=== PATIENT | female | born 1990 | race Caucasian/White ===

== ENCOUNTER 2017-11-30 23:39 | Inpatient (IN) | payer OTHER ==
[~2017-11-30] VITALS: Ht 167.6 cm; Wt 120.7 kg
[2017-12-01 00:11] LABS: BILIRUBIN,URINE NEGATIVE (NEG); CLARITY,URINE CLEAR; COLOR,URINE YELLOW; NITRITE,URINE NEGATIVE (NEG); PH,URINE 7.5; PROTEIN,URINE NEGATIVE (NEG-TRACE)
[2017-12-01 00:19] LABS: BACTERIA,URINE FEW /HPF (0-FEW); RBC,URINE OCC /HPF (0-2); WBC,URINE 20-40 /HPF (0-4)
[2017-12-01 00:20] LABS: SQUAMOUS EPITHELIAL CELL,UR MOD /LPF; TRICHOMONAS,URINE PRESENT
[2017-12-01 00:21] LABS: AMPHETAMINE/METHAMPHETAMINE NEG (NEG); BARBITURATES NEG (NEG); BENZODIAZEPINES NEG (NEG); CANNABINOIDS POS (NEG); COCAINE NEG (NEG); METHADONE NEG (NEG); OPIATES NEG (NEG); PHENCYCLIDINE NEG (NEG)
[2017-12-01] MEDS ORDERED: IV NORMAL SALINE 1000ML BAG 1,000 ML IV ONE (00:30)
--- NOTE | 2017-12-01 00:43 | PHYS DOC ---
Past Medical History Past Medical History: No Pertinent History Past Surgical History: No Surgical History Additional Information: 1/2 PPD Alcohol Use: None Drug Use: Marijuana, Methamphetamine Social History Narrative: SMOKED MARIJUANA 2-3 DAYS AGO Adult General Chief Complaint Chief Complaint: ABDOMINAL PAIN HPI HPI Patient is a 27 year old female who presents with generalized abdominal pain. Patient admits to recent meth and marijuana use and states she's been having generalized abdominal pain for the past days. Patient denies any vomiting or diarrhea but is here for further evaluation and management. Patient states she did have a tubal ligation. Review of Systems Review of Systems Constitutional: Denies fever or chills [] Eyes: Denies change in visual acuity, redness, or eye pain [] HENT: Denies nasal congestion or sore throat [] Respiratory: Denies cough or shortness of breath [] Cardiovascular: No additional information not addressed in HPI [] GI: Denies abdominal pain, nausea, vomiting, bloody stools or diarrhea [] : Denies dysuria or hematuria [] Musculoskeletal: Denies back pain or joint pain [] Integument: Denies rash or skin lesions [] Neurologic: Denies headache, focal weakness or sensory changes [] Endocrine: Denies polyuria or polydipsia [] All other systems were reviewed and found to be within normal limits, except as documented in this note. Current Medications Current Medications Current Medications Medications (Trade) Dose Ordered Sig/Issa Start Time Stop Time Status Last Admin Dose Admin Info (CONTRAST GIVEN -- Rx MONITORING) 1 each PRN DAILY PRN 12/01/17 02:30 12/03/17 02:29 Iohexol (Omnipaque 300 Mg/ml) 75 ml 1X ONCE 12/01/17 03:00 12/01/17 03:01 DC 12/01/17 02:30 75 ML Ketorolac Tromethamine (Toradol 30mg Vial) 30 mg 1X ONCE 12/01/17 02:00 12/01/17 02:01 DC 12/01/17 01:49 30 MG Sodium Chloride 1,000 ml @ 1,000 mls/hr 1X ONCE 12/01/17 00:30 12/01/17 01:29 DC 12/01/17 01:31 1,000 MLS/HR Allergies Allergies Allergies Coded Allergies Type Severity Reaction Last Updated Verified No Known Drug Allergies 07/18/13 No Physical Exam Physical Exam Constitutional: Well developed, well nourished, no acute distress, non-toxic appearance. [] HENT: Normocephalic, atraumatic, bilateral external ears normal, oropharynx moist, no oral exudates, nose normal. [] Eyes: PERRLA, EOMI, conjunctiva normal, no discharge. [] Neck: Normal range of motion, no tenderness, supple, no stridor. [] Cardiovascular:Heart rate regular rhythm, no murmur [] Lungs & Thorax: Bilateral breath sounds clear to auscultation [] Abdomen: Bowel sounds normal, soft, mild, generalized tenderness, no masses, no pulsatile masses. [] Skin: Warm, dry, no erythema, no rash. [] Back: No tenderness, no CVA tenderness. [] Extremities: No tenderness, no cyanosis, no clubbing, ROM intact, no edema. [] Neurologic: Alert and oriented X 3, normal motor function, normal sensory function, no focal deficits noted. [] Psychologic: Affect normal, judgement normal, mood normal. [] Current Patient Data Vital Signs Vital Signs Date Time Temp Pulse Resp B/P (MAP) Pulse Ox O2 Delivery O2 Flow Rate FiO2 11/30/17 23:51 98.6 80 16 133/61 (85) 99 Room Air 98.6 Lab Values Laboratory Tests Test 11/30/17 23:40 11/30/17 23:59 12/01/17 01:10 Urine Collection Type Unknown Urine Color Yellow Urine Clarity Clear Urine pH 7.5 Urine Specific [place] 1.015 Urine Protein Negative mg/dL (NEG-TRACE) Urine Glucose (UA) Negative mg/dL (NEG) Urine Ketones (Stick) Negative mg/dL (NEG) Urine Blood Negative (NEG) Urine Nitrite Negative (NEG) Urine Bilirubin Negative (NEG) Urine Urobilinogen Dipstick 1.0 mg/dL (0.2 mg/dL) Urine Leukocyte Esterase Small (NEG) Urine RBC Occ /HPF (0-2) Urine WBC 20-40 /HPF (0-4) Urine Squamous Epithelial Cells Mod /LPF Urine Bacteria Few /HPF (0-FEW) Urine Mucus Slight /LPF Urine Trichomonas Present Urine Opiates Screen Neg (NEG) Urine Methadone Screen Neg (NEG) Urine Barbiturates Neg (NEG) Urine Phencyclidine Screen Neg (NEG) Urine Amphetamine/Methamphetamine Neg (NEG) Urine Benzodiazepines Screen Neg (NEG) Urine Cocaine Screen Neg (NEG) Urine Cannabinoids Screen Pos (NEG) Urine Ethyl Alcohol Neg (NEG) POC Urine HCG, Qualitative Hcg negative (Negative) White Blood Count 17.9 x10^3/uL (4.0-11.0) H Red Blood Count 4.59 x10^6/uL (3.50-5.40) Hemoglobin 14.8 g/dL (12.0-15.5) Hematocrit 41.9 % (36.0-47.0) Mean Corpuscular Volume 91 fL (79-100) Mean Corpuscular Hemoglobin 32 pg (25-35) Mean Corpuscular Hemoglobin Concent 35 g/dL (31-37) Red Cell Distribution Width 12.9 % (11.5-14.5) Platelet Count 267 x10^3/uL (140-400) Neutrophils (%) (Auto) 84 % (31-73) H Lymphocytes (%) (Auto) 8 % (24-48) L Monocytes (%) (Auto) 6 % (0-9) Eosinophils (%) (Auto) 1 % (0-3) Basophils (%) (Auto) 1 % (0-3) Neutrophils # (Auto) 15.1 x10^3uL (1.8-7.7) H Lymphocytes # (Auto) 1.5 x10^3/uL (1.0-4.8) Monocytes # (Auto) 1.1 x10^3/uL (0.0-1.1) Eosinophils # (Auto) 0.2 x10^3/uL (0.0-0.7) Basophils # (Auto) 0.1 x10^3/uL (0.0-0.2) Segmented Neutrophils % 83 % (35-66) H Band Neutrophils % 6 % (0-9) Lymphocytes % 7 % (24-48) L Monocytes % 4 % (0-10) Platelet Estimate Adequate (ADEQUATE) Sodium Level 134 mmol/L (136-145) L Potassium Level 3.9 mmol/L (3.5-5.1) Chloride Level 98 mmol/L (98-107) Carbon Dioxide Level 29 mmol/L (21-32) Anion Gap 7 (6-14) Blood Urea Nitrogen 6 mg/dL (7-20) L Creatinine 0.7 mg/dL (0.6-1.0) Estimated GFR (Cockcroft-Gault) 98.9 BUN/Creatinine Ratio 9 (6-20) Glucose Level 100 mg/dL (70-99) H Calcium Level 8.9 mg/dL (8.5-10.1) Total Bilirubin 0.6 mg/dL (0.2-1.0) Aspartate Amino Transferase (AST) 17 U/L (15-37) Alanine Aminotransferase (ALT) 13 U/L (14-59) L Alkaline Phosphatase 129 U/L (46-116) H Total Protein 7.5 g/dL (6.4-8.2) Albumin 3.6 g/dL (3.4-5.0) Albumin/Globulin Ratio 0.9 (1.0-1.7) L Lipase 97 U/L (73-393) Ethyl Alcohol Level < 10 mg/dL (0-10) Laboratory Tests 12/01/17 01:10 Laboratory Tests 12/01/17 01:10 EKG EKG [] Radiology/Procedures Radiology/Procedures [facility] [address] [place] [address] IMAGING REPORT Signed PATIENT: WILLIAM RAMIREZ ACCOUNT: [id number] : 1990 LOCATION: ER AGE: 27 SEX: F EXAM STATUS: REG ER ORD. PHYSICIAN: SANJAY NEAL MD REASON: ABDOMEN PAIN X 3 DAYS PROCEDURE: CT ABD PELV W/ IV CONTRST ONLY INDICATION: ABDOMEN PAIN X 3 DAYS
75ML OMNI 300 COMPARISON: None. TECHNIQUE: Axial CT images were obtained through the abdomen and pelvis with intravenous contrast. One or more of the following individualized dose reduction techniques were utilized for this examination: 1. Automated exposure control; 2. Adjustment of the mA and/or kV according to patient size; 3. Use of iterative reconstruction technique. FINDINGS: Chest Base: Partially imaged without gross abnormality. Vessels: No abdominal aortic aneurysm. Liver/Biliary: The gallbladder is distended with suspected stones within as well as mild adjacent edema Pancreas: No definite adjacent fluid collection. Spleen: Normal. Kidneys/Adrenal: No hydronephrosis. Bladder: No definite adjacent inflammation. GI: The appendix does not appear grossly dilated. Prominent subcutaneous vessels in the groin bilaterally. There is a possible cystic lesion of the right adnexa measuring up to approximately 35 mm IMPRESSION: 1. Gallbladder is distended with suspected gallstones within as well as mild adjacent edema. Would correlate with symptoms in the region since early cholecystitis could have this appearance in the correct clinical context. If further information is desired follow-up ultrasound or nuclear hepatic biliary scan could BE obtained. 2. Possible cystic lesion right adnexa. 3. Questionable mild low-attenuation at pancreatic head. Cannot exclude superimposed edema to this area given proximity to gallbladder. Electronically signed by: Mingo Washington MD (12/01/2017 3:29 AM) [facility] [] Course & Med Decision Making Course & Med Decision Making Pertinent Labs and Imaging studies reviewed. (See chart for details) [] Dragon Disclaimer Dragon Disclaimer This electronic medical record was generated, in whole or in part, using a voice recognition dictation system. Departure Departure Referrals: NO PCP (PCP) SANJAY NEAL MD Dec 01, 2017 00:43
[2017-12-01 01:29] LABS: BASO # 0.1 x10^3/uL (0.0-0.2); BASO % 1 % (0-3); EOS # 0.2 x10^3/uL (0.0-0.7); EOS % 1 % (0-3); HEMATOCRIT 41.9 % (36.0-47.0); HEMOGLOBIN 14.8 g/dL (12.0-15.5); LYMPH # 1.5 x10^3/uL (1.0-4.8); LYMPH % 8 % (24-48); MEAN CORPUSCULAR HEMOGLOBIN 32 pg (25-35); MEAN CORPUSCULAR HGB CONC 35 g/dL (31-37); MEAN CORPUSCULAR VOLUME 91 fL (79-100); MONO # 1.1 x10^3/uL (0.0-1.1); MONO % 6 % (0-9); NEUT # 15.1 x10^3uL (1.8-7.7); NEUT % 84 % (31-73); PLATELET COUNT 267 x10^3/uL (140-400); RED BLOOD COUNT 4.59 x10^6/uL (3.50-5.40); RED CELL DISTRIBUTION WIDTH 12.9 % (11.5-14.5); WHITE BLOOD COUNT 17.9 x10^3/uL (4.0-11.0)
[2017-12-01 01:36] LABS: CALCIUM 8.9 mg/dL (8.5-10.1); CREATININE 0.7 mg/dL (0.6-1.0); GFR 98.9; POTASSIUM 3.9 mmol/L (3.5-5.1)
[2017-12-01 01:42] LABS: ALBUMIN 3.6 g/dL (3.4-5.0); ALBUMIN/GLOBULIN RATIO 0.9 (1.0-1.7); TOTAL BILIRUBIN 0.6 mg/dL (0.2-1.0); TOTAL PROTEIN 7.5 g/dL (6.4-8.2)
[2017-12-01] MEDS ORDERED: KETOROLAC 30 MG/ML VIAL. IV ONE (02:00)
[2017-12-01] MEDS ORDERED: CONTRAST GIVEN. MC PRN (02:30)
[2017-12-01] MEDS ORDERED: IOHEXOL 300 MG/ML 100ML VIAL. IV ONE (03:00)
[2017-12-01 03:23] LABS: % BANDS 6 % (0-9); % LYMPHS 7 % (24-48); % MONOS 4 % (0-10); % SEGS 83 % (35-66); PLT ESTIMATE ADEQUATE (ADEQUATE)
--- NOTE | 2017-12-01 03:32 | RAD ---
INDICATION: ABDOMEN PAIN X 3 DAYS
75ML OMNI 300 COMPARISON: None. TECHNIQUE: Axial CT images were obtained through the abdomen and pelvis with intravenous contrast. One or more of the following individualized dose reduction techniques were utilized for this examination: 1. Automated exposure control; 2. Adjustment of the mA and/or kV according to patient size; 3. Use of iterative reconstruction technique. FINDINGS: Chest Base: Partially imaged without gross abnormality. Vessels: No abdominal aortic aneurysm. Liver/Biliary: The gallbladder is distended with suspected stones within as well as mild adjacent edema Pancreas: No definite adjacent fluid collection. Spleen: Normal. Kidneys/Adrenal: No hydronephrosis. Bladder: No definite adjacent inflammation. GI: The appendix does not appear grossly dilated. Prominent subcutaneous vessels in the groin bilaterally. There is a possible cystic lesion of the right adnexa measuring up to approximately 35 mm IMPRESSION: 1. Gallbladder is distended with suspected gallstones within as well as mild adjacent edema. Would correlate with symptoms in the region since early cholecystitis could have this appearance in the correct clinical context. If further information is desired follow-up ultrasound or nuclear hepatic biliary scan could BE obtained. 2. Possible cystic lesion right adnexa. 3. Questionable mild low-attenuation at pancreatic head. Cannot exclude superimposed edema to this area given proximity to gallbladder. Electronically signed by: Mingo Washington MD (12/01/2017 3:29 AM) [facility]
[2017-12-01] MEDS ORDERED: PIPERACILLIN/TAZOBACTAM 3.375 GM in IV NORMAL SALINE 50ML 50 ML IV ONE (05:30)
[2017-12-01] MEDS ORDERED: ONDANSETRON PF 4 MG/2 ML VIAL. IV ONE (06:00)
[2017-12-01] MEDS ORDERED: fentaNYL PF VIAL 100 MCG/2 ML VIAL IV ONE (06:00)
[2017-12-01 07:45] VITALS: BP 120/59
[2017-12-01] MEDS ORDERED: ONDANSETRON PF 4 MG/2 ML VIAL. IV PRN ×2 (08:15→10:30)
[2017-12-01] MEDS ORDERED: MORPHINE SULFATE 4 MG/ML VIAL. IV PRN (08:15)
[2017-12-01] MEDS: IV NORMAL SALINE 1000ML BAG 1,000 ML IV SCH ×2 (09:22→18:28)
[2017-12-01] MEDS ORDERED: fentaNYL PF VIAL 100 MCG/2 ML VIAL IV PRN (10:30)
[2017-12-01 11:00] VITALS: BP 115/77
--- NOTE | 2017-12-01 11:24 | PDOC2 ---
FRED GREENE HAND [employer]APPER 12/01/17 1124: CONSULT Date of Consult Date of Consult DATE: 12/01/17 TIME: 11:20 Reason for Consult Reason for Consult: cholecystitis Referring Physician Referring Physician: ER Identification/Chief Complaint Chief Complaint abdominal pain Source Source: Chart review, Patient History of Present Illness Reason for Visit: 3 day history of upper abdominal pain. Denies nausea or emesis. No constipation or diarrhea. No similar pain in past Past Medical History Past Medical History no pertinent medical hx Past Surgical History Past Surgical History: Tubal Ligation Family History Family History: Other (noncontributory to current illness ) Social History <1 pack per day ALCOHOL: none Drugs: Crystal meth Lives: Alone Current Problem List Problem List Problems Medical Problems: (1) Acute cholecystitis Status: Acute Current Medications Current Medications Current Medications Sodium Chloride 1,000 ml @ 1,000 mls/hr 1X ONCE IV Last administered on at 01:31; Start 12/01/17 at 00:30; Stop 12/01/17 at 01:29; Status DC Ketorolac Tromethamine (Toradol 30mg Vial) 30 mg 1X ONCE IV Last administered on 12/01/17at 01:49; Start 12/01/17 at 02:00; Stop 12/01/17 at 02:01; Status DC Iohexol (Omnipaque 300 Mg/ml) 75 ml 1X ONCE IV Last administered on 12/01/17at 02:30; Start 12/01/17 at 03:00; Stop 12/01/17 at 03:01; Status DC Info (CONTRAST GIVEN -- Rx MONITORING) 1 each PRN DAILY PRN MC SEE COMMENTS; Start 12/01/17 at 02:30; Stop 12/03/17 at 02:29 Piperacillin Sod/ Tazobactam Sod 3.375 gm/Sodium Chloride 50 ml @ 100 mls/hr 1X ONCE IV Last administered on 12/01/17at 05:10; Start 12/01/17 at 05:30; Stop 12/01/17 at 05:59; Status DC Fentanyl Citrate (Fentanyl 2ml Vial) 50 mcg 1X ONCE IV Last administered on at 05:47; Start 12/01/17 at 06:00; Stop 12/01/17 at 06:01; Status DC Ondansetron HCl (Zofran) 4 mg 1X ONCE IV Last administered on 12/01/17at 05:47 ; Start 12/01/17 at 06:00; Stop 12/01/17 at 06:01; Status DC Ondansetron HCl (Zofran) 4 mg PRN Q6HRS PRN IV NAUSEA/VOMITING; Start 12/01/17 at 08:15 Morphine Sulfate (Morphine Sulfate) 4 mg PRN Q2HR PRN IV PAIN Last administered on 12/01/17at 09:22; Start 12/01/17 at 08:15 Sodium Chloride 1,000 ml @ 125 mls/hr Q8H IV Last administered on 12/01/17at 09 :22; Start 12/01/17 at 08:15 Fentanyl Citrate (Fentanyl 2ml Vial) 50 mcg PRN Q4HRS PRN IV PAIN Last administered on 12/01/17at 11:13; Start 12/01/17 at 10:30; Stop 12/02/17 at 10:29 Ondansetron HCl (Zofran) 4 mg PRN Q6HRS PRN IV NAUSEA/VOMITING; Start 12/01/17 at 10:30; Stop 12/01/17 at 10:30; Status DC Piperacillin Sod/ Tazobactam Sod 3.375 gm/Sodium Chloride 50 ml @ 100 mls/hr Q6HRS IV ; Start 12/01/17 at 18:00 Allergies Allergies: Coded Allergies: No Known Drug Allergies (Unverified , 07/18/13) ROS General: No: Chills, Other (fevers) PSYCHOLOGICAL ROS: No: Anxiety, Depression Eyes: No Blurry vision, No Double vision HEENT: No: Heacaches, Sore Throat Hematological and Lymphatic: No: Bleeding Problems, Blood Clots Respiratory: No: Cough, Shortness of breath Cardiovascular: No Chest Pain, No Palpitations Gastrointestinal: Yes Other (see hpi) Genitourinary: No Dysuria, No Hematuria Musculoskeletal: No Joint Pain, No Muscle Pain Neurological: No Confusion, No Impaired Coord/balance Skin: No Pruritus, No Rash Physical Exam General: Alert, Cooperative, Other (in acute pain) HEENT: Other (poor dentition ) Lungs: Clear to auscultation, Normal air movement Heart: Regular rate, Normal S1, Normal S2, No murmurs Abdomen: Soft, Other (generalized TTP, greater across upper abdomen ) Extremities: No clubbing, No cyanosis Skin: No rashes, No breakdown Neuro: Normal gait, Normal speech Psych/Mental Status: Mental status NL, Mood NL MUSCULOSKELETAL: No deformity, No swelling Vitals VITALS Vital Signs Date Time Temp Pulse Resp B/P (MAP) Pulse Ox O2 Delivery O2 Flow Rate FiO2 12/01/17 11:13 Room Air 12/01/17 07:45 98.9 69 18 120/59 (79) 93 98.9 Labs Labs Laboratory Tests Test 11/30/17 23:40 11/30/17 23:59 12/01/17 01:10 Urine Collection Type Unknown Urine Color Yellow Urine Clarity Clear Urine pH 7.5 Urine Specific [place] 1.015 Urine Protein Negative mg/dL (NEG-TRACE) Urine Glucose (UA) Negative mg/dL (NEG) Urine Ketones (Stick) Negative mg/dL (NEG) Urine Blood Negative (NEG) Urine Nitrite Negative (NEG) Urine Bilirubin Negative (NEG) Urine Urobilinogen Dipstick 1.0 mg/dL (0.2 mg/dL) Urine Leukocyte Esterase Small (NEG) Urine RBC Occ /HPF (0-2) Urine WBC 20-40 /HPF (0-4) Urine Squamous Epithelial Cells Mod /LPF Urine Bacteria Few /HPF (0-FEW) Urine Mucus Slight /LPF Urine Trichomonas Present Urine Opiates Screen Neg (NEG) Urine Methadone Screen Neg (NEG) Urine Barbiturates Neg (NEG) Urine Phencyclidine Screen Neg (NEG) Urine Amphetamine/Methamphetamine Neg (NEG) Urine Benzodiazepines Screen Neg (NEG) Urine Cocaine Screen Neg (NEG) Urine Cannabinoids Screen Pos (NEG) Urine Ethyl Alcohol Neg (NEG) Bedside Urine HCG, Qualitative Hcg negative (Negative) White Blood Count 17.9 x10^3/uL (4.0-11.0) Red Blood Count 4.59 x10^6/uL (3.50-5.40) Hemoglobin 14.8 g/dL (12.0-15.5) Hematocrit 41.9 % (36.0-47.0) Mean Corpuscular Volume 91 fL (79-100) Mean Corpuscular Hemoglobin 32 pg (25-35) Mean Corpuscular Hemoglobin Concent 35 g/dL (31-37) Red Cell Distribution Width 12.9 % (11.5-14.5) Platelet Count 267 x10^3/uL (140-400) Neutrophils (%) (Auto) 84 % (31-73) Lymphocytes (%) (Auto) 8 % (24-48) Monocytes (%) (Auto) 6 % (0-9) Eosinophils (%) (Auto) 1 % (0-3) Basophils (%) (Auto) 1 % (0-3) Neutrophils # (Auto) 15.1 x10^3uL (1.8-7.7) Lymphocytes # (Auto) 1.5 x10^3/uL (1.0-4.8) Monocytes # (Auto) 1.1 x10^3/uL (0.0-1.1) Eosinophils # (Auto) 0.2 x10^3/uL (0.0-0.7) Basophils # (Auto) 0.1 x10^3/uL (0.0-0.2) Segmented Neutrophils % 83 % (35-66) Band Neutrophils % 6 % (0-9) Lymphocytes % 7 % (24-48) Monocytes % 4 % (0-10) Platelet Estimate Adequate (ADEQUATE) Sodium Level 134 mmol/L (136-145) Potassium Level 3.9 mmol/L (3.5-5.1) Chloride Level 98 mmol/L (98-107) Carbon Dioxide Level 29 mmol/L (21-32) Anion Gap 7 (6-14) Blood Urea Nitrogen 6 mg/dL (7-20) Creatinine 0.7 mg/dL (0.6-1.0) Estimated GFR (Cockcroft-Gault) 98.9 BUN/Creatinine Ratio 9 (6-20) Glucose Level 100 mg/dL (70-99) Calcium Level 8.9 mg/dL (8.5-10.1) Total Bilirubin 0.6 mg/dL (0.2-1.0) Aspartate Amino Transf (AST/SGOT) 17 U/L (15-37) Alanine Aminotransferase (ALT/SGPT) 13 U/L (14-59) Alkaline Phosphatase 129 U/L (46-116) Total Protein 7.5 g/dL (6.4-8.2) Albumin 3.6 g/dL (3.4-5.0) Albumin/Globulin Ratio 0.9 (1.0-1.7) Lipase 97 U/L (73-393) Ethyl Alcohol Level < 10 mg/dL (0-10) Laboratory Tests Test 11/30/17 23:40 11/30/17 23:59 12/01/17 01:10 Urine Collection Type Unknown Urine Color Yellow Urine Clarity Clear Urine pH 7.5 Urine Specific [place] 1.015 Urine Protein Negative mg/dL (NEG-TRACE) Urine Glucose (UA) Negative mg/dL (NEG) Urine Ketones (Stick) Negative mg/dL (NEG) Urine Blood Negative (NEG) Urine Nitrite Negative (NEG) Urine Bilirubin Negative (NEG) Urine Urobilinogen Dipstick 1.0 mg/dL (0.2 mg/dL) Urine Leukocyte Esterase Small (NEG) Urine RBC Occ /HPF (0-2) Urine WBC 20-40 /HPF (0-4) Urine Squamous Epithelial Cells Mod /LPF Urine Bacteria Few /HPF (0-FEW) Urine Mucus Slight /LPF Urine Trichomonas Present Urine Opiates Screen Neg (NEG) Urine Methadone Screen Neg (NEG) Urine Barbiturates Neg (NEG) Urine Phencyclidine Screen Neg (NEG) Urine Amphetamine/Methamphetamine Neg (NEG) Urine Benzodiazepines Screen Neg (NEG) Urine Cocaine Screen Neg (NEG) Urine Cannabinoids Screen Pos (NEG) Urine Ethyl Alcohol Neg (NEG) Bedside Urine HCG, Qualitative Hcg negative (Negative) White Blood Count 17.9 x10^3/uL (4.0-11.0) Red Blood Count 4.59 x10^6/uL (3.50-5.40) Hemoglobin 14.8 g/dL (12.0-15.5) Hematocrit 41.9 % (36.0-47.0) Mean Corpuscular Volume 91 fL (79-100) Mean Corpuscular Hemoglobin 32 pg (25-35) Mean Corpuscular Hemoglobin Concent 35 g/dL (31-37) Red Cell Distribution Width 12.9 % (11.5-14.5) Platelet Count 267 x10^3/uL (140-400) Neutrophils (%) (Auto) 84 % (31-73) Lymphocytes (%) (Auto) 8 % (24-48) Monocytes (%) (Auto) 6 % (0-9) Eosinophils (%) (Auto) 1 % (0-3) Basophils (%) (Auto) 1 % (0-3) Neutrophils # (Auto) 15.1 x10^3uL (1.8-7.7) Lymphocytes # (Auto) 1.5 x10^3/uL (1.0-4.8) Monocytes # (Auto) 1.1 x10^3/uL (0.0-1.1) Eosinophils # (Auto) 0.2 x10^3/uL (0.0-0.7) Basophils # (Auto) 0.1 x10^3/uL (0.0-0.2) Segmented Neutrophils % 83 % (35-66) Band Neutrophils % 6 % (0-9) Lymphocytes % 7 % (24-48) Monocytes % 4 % (0-10) Platelet Estimate Adequate (ADEQUATE) Sodium Level 134 mmol/L (136-145) Potassium Level 3.9 mmol/L (3.5-5.1) Chloride Level 98 mmol/L (98-107) Carbon Dioxide Level 29 mmol/L (21-32) Anion Gap 7 (6-14) Blood Urea Nitrogen 6 mg/dL (7-20) Creatinine 0.7 mg/dL (0.6-1.0) Estimated GFR (Cockcroft-Gault) 98.9 BUN/Creatinine Ratio 9 (6-20) Glucose Level 100 mg/dL (70-99) Calcium Level 8.9 mg/dL (8.5-10.1) Total Bilirubin 0.6 mg/dL (0.2-1.0) Aspartate Amino Transf (AST/SGOT) 17 U/L (15-37) Alanine Aminotransferase (ALT/SGPT) 13 U/L (14-59) Alkaline Phosphatase 129 U/L (46-116) Total Protein 7.5 g/dL (6.4-8.2) Albumin 3.6 g/dL (3.4-5.0) Albumin/Globulin Ratio 0.9 (1.0-1.7) Lipase 97 U/L (73-393) Ethyl Alcohol Level < 10 mg/dL (0-10) Assessment/Plan Assessment/Plan abdominal pain CT --possible cholecystitis, however abnormal appearance of pancreatic head and possible cystic lesion to right adnexa wbc 17, lfts stable will review with JAGRUTI Quinones MD 12/01/17 5031: CONSULT Assessment/Plan Assessment/Plan Pt seen and examined. Agree with Ms. Greene's note Pt with c/o diffuse abd pain, doesn't localize abd soft, obese, mild diffuse TTP will check US to evaluate GB, pancreatic head and adenexa will ask GI to evaluate Thanks for consult! FRED GREENE APRN Dec 01, 2017 11:24 JAGRUTI SHAFFER MD Dec 01, 2017 14:04
--- NOTE | 2017-12-01 11:31 | PDOC1 ---
History and Physical Date of Admission Date of Admission DATE: 12/01/17 TIME: 11:28 Identification/Chief Complaint Chief Complaint abd pain Source Source: Chart review, Patient History of Present Illness History of Present Illness Ms. Mccrary is a 27 year old female admit with acute new, generalized abdominal pain. Pain 9.10 pain has worsened over a few days, noted tobacco and substance abuse no vomiting or diarrhea Patient states she did have a tubal ligation. Past Medical History Cardiovascular: No pertinent hx Pulmonary: No pertinent hx GI: No pertinent hx Heme/Onc: No pertinent hx Hepatobiliary: No pertinent hx Psych: No pertinent hx Past Surgical History Past Surgical History: Tubal Ligation Family History Family History: Other (noncontributory to current illness ) Social History Smoke: <1 pack per day ALCOHOL: none Drugs: Crystal meth Current Problem List Problem List Problems Medical Problems: (1) Acute cholecystitis Status: Acute Current Medications Current Medications Current Medications Sodium Chloride 1,000 ml @ 1,000 mls/hr 1X ONCE IV Last administered on at 01:31; Start 12/01/17 at 00:30; Stop 12/01/17 at 01:29; Status DC Ketorolac Tromethamine (Toradol 30mg Vial) 30 mg 1X ONCE IV Last administered on 12/01/17at 01:49; Start 12/01/17 at 02:00; Stop 12/01/17 at 02:01; Status DC Iohexol (Omnipaque 300 Mg/ml) 75 ml 1X ONCE IV Last administered on 12/01/17at 02:30; Start 12/01/17 at 03:00; Stop 12/01/17 at 03:01; Status DC Info (CONTRAST GIVEN -- Rx MONITORING) 1 each PRN DAILY PRN MC SEE COMMENTS; Start 12/01/17 at 02:30; Stop 12/03/17 at 02:29 Piperacillin Sod/ Tazobactam Sod 3.375 gm/Sodium Chloride 50 ml @ 100 mls/hr 1X ONCE IV Last administered on 12/01/17at 05:10; Start 12/01/17 at 05:30; Stop 12/01/17 at 05:59; Status DC Fentanyl Citrate (Fentanyl 2ml Vial) 50 mcg 1X ONCE IV Last administered on at 05:47; Start 12/01/17 at 06:00; Stop 12/01/17 at 06:01; Status DC Ondansetron HCl (Zofran) 4 mg 1X ONCE IV Last administered on 12/01/17at 05:47 ; Start 12/01/17 at 06:00; Stop 12/01/17 at 06:01; Status DC Ondansetron HCl (Zofran) 4 mg PRN Q6HRS PRN IV NAUSEA/VOMITING; Start 12/01/17 at 08:15 Morphine Sulfate (Morphine Sulfate) 4 mg PRN Q2HR PRN IV PAIN Last administered on 12/01/17at 09:22; Start 12/01/17 at 08:15 Sodium Chloride 1,000 ml @ 125 mls/hr Q8H IV Last administered on 12/01/17at 09 :22; Start 12/01/17 at 08:15 Fentanyl Citrate (Fentanyl 2ml Vial) 50 mcg PRN Q4HRS PRN IV PAIN Last administered on 12/01/17at 11:13; Start 12/01/17 at 10:30; Stop 12/02/17 at 10:29 Ondansetron HCl (Zofran) 4 mg PRN Q6HRS PRN IV NAUSEA/VOMITING; Start 12/01/17 at 10:30; Stop 12/01/17 at 10:30; Status DC Piperacillin Sod/ Tazobactam Sod 3.375 gm/Sodium Chloride 50 ml @ 100 mls/hr Q6HRS IV ; Start 12/01/17 at 18:00 Allergies Allergies: Coded Allergies: No Known Drug Allergies (Unverified , 07/18/13) ROS General: YES: Fatigue, Appetite; No: Chills, Night Sweats, Malaise, Other PSYCHOLOGICAL ROS: No: Anxiety, Behavioral Disorder, Concentration difficultie , Decreased libido, Depression, Disorientation, Hallucinations, Hostility, Irritablity, Memory difficulties, Mood Swings, Obsessive thoughts, Physical abuse, Sexual abuse, Sleep disturbances, Suicidal ideation, Other Eyes: No Blurry vision, No Decreased vision, No Double vision, No Dry eyes, No Excessive tearing, No Eye Pain, No Itchy Eyes, No Loss of vision, No Photophobia , No Scotomata, No Uses contacts, No Uses glasses, No Other HEENT: YES: Heacaches; No: Visual Changes, Hearing change, Nasal congestion, Nasal discharge, Oral lesions, Sinus pain, Sore Throat, Epistaxis, Sneezing, Snoring, Tinnitus, Vertigo, Vocal changes, Other Respiratory: No: Cough, Hemoptysis, Orthopnea, Pleuritic Pain, Shortness of breath, SOB with excertion, Sputum Changes, Stridor, Tachypnea, Wheezing, Other Cardiovascular: No Chest Pain, No Palpitations, No Orthopnea, No Paroxysmal Noc. Dyspnea, No Edema, No Lt Headedness, No Other Gastrointestinal: Yes Nausea, Yes Vomiting, Yes Abdominal Pain Genitourinary: No Dysuria, No Frequency, No Incontinence, No Hematuria, No Retention, No Discharge, No Urgency, No Pain, No Flank Pain, No Other, No , No , No , No , No , No , No Musculoskeletal: No Gait Disturbance, No Joint Pain, No Joint Stiffness, No Joint Swelling, No Muscle Pain, No Muscular Weakness, No Pain In:, No Swelling In:, No Other Neurological: No Behavorial Changes, No Bowel/Bladder ControlChng, No Confusion , No Dizziness, No Gait Disturbance, No Headaches, No Impaired Coord/balance, No Memory Loss, No Numbness/Tingling, No Seizures, No Speech Problems, No Tremors, No Visual Changes, No Weakness, No Other Skin: No Dry Skin, No Eczema, No Hair Changes, No Lumps, No Mole Changes, No Mottling, No Nail Changes, No Pruritus, No Rash, No Skin Lesion Changes, No Other, No Acne Physical Exam General: Alert, Oriented X3, Cooperative, No acute distress HEENT: EOMI, Mucous membr. moist/pink Lungs: Normal air movement Heart: S1S2, no gallops, no murmurs Abdomen: Other (pain , guarding diffusely) Extremities: No cyanosis, No edema, Normal pulses Skin: No rashes, No significant lesion Neuro: Normal speech, Sensation intact, Cranial nerves 3-12 NL Psych/Mental Status: Mental status NL, Mood NL Vitals Vitals Vital Signs Date Time Temp Pulse Resp B/P (MAP) Pulse Ox O2 Delivery O2 Flow Rate FiO2 12/01/17 11:13 Room Air 12/01/17 07:45 98.9 69 18 120/59 (79) 93 98.9 Labs Labs Laboratory Tests Test 11/30/17 23:40 11/30/17 23:59 12/01/17 01:10 Urine Collection Type Unknown Urine Color Yellow Urine Clarity Clear Urine pH 7.5 Urine Specific [place] 1.015 Urine Protein Negative mg/dL (NEG-TRACE) Urine Glucose (UA) Negative mg/dL (NEG) Urine Ketones (Stick) Negative mg/dL (NEG) Urine Blood Negative (NEG) Urine Nitrite Negative (NEG) Urine Bilirubin Negative (NEG) Urine Urobilinogen Dipstick 1.0 mg/dL (0.2 mg/dL) Urine Leukocyte Esterase Small (NEG) Urine RBC Occ /HPF (0-2) Urine WBC 20-40 /HPF (0-4) Urine Squamous Epithelial Cells Mod /LPF Urine Bacteria Few /HPF (0-FEW) Urine Mucus Slight /LPF Urine Trichomonas Present Urine Opiates Screen Neg (NEG) Urine Methadone Screen Neg (NEG) Urine Barbiturates Neg (NEG) Urine Phencyclidine Screen Neg (NEG) Urine Amphetamine/Methamphetamine Neg (NEG) Urine Benzodiazepines Screen Neg (NEG) Urine Cocaine Screen Neg (NEG) Urine Cannabinoids Screen Pos (NEG) Urine Ethyl Alcohol Neg (NEG) Bedside Urine HCG, Qualitative Hcg negative (Negative) White Blood Count 17.9 x10^3/uL (4.0-11.0) Red Blood Count 4.59 x10^6/uL (3.50-5.40) Hemoglobin 14.8 g/dL (12.0-15.5) Hematocrit 41.9 % (36.0-47.0) Mean Corpuscular Volume 91 fL (79-100) Mean Corpuscular Hemoglobin 32 pg (25-35) Mean Corpuscular Hemoglobin Concent 35 g/dL (31-37) Red Cell Distribution Width 12.9 % (11.5-14.5) Platelet Count 267 x10^3/uL (140-400) Neutrophils (%) (Auto) 84 % (31-73) Lymphocytes (%) (Auto) 8 % (24-48) Monocytes (%) (Auto) 6 % (0-9) Eosinophils (%) (Auto) 1 % (0-3) Basophils (%) (Auto) 1 % (0-3) Neutrophils # (Auto) 15.1 x10^3uL (1.8-7.7) Lymphocytes # (Auto) 1.5 x10^3/uL (1.0-4.8) Monocytes # (Auto) 1.1 x10^3/uL (0.0-1.1) Eosinophils # (Auto) 0.2 x10^3/uL (0.0-0.7) Basophils # (Auto) 0.1 x10^3/uL (0.0-0.2) Segmented Neutrophils % 83 % (35-66) Band Neutrophils % 6 % (0-9) Lymphocytes % 7 % (24-48) Monocytes % 4 % (0-10) Platelet Estimate Adequate (ADEQUATE) Sodium Level 134 mmol/L (136-145) Potassium Level 3.9 mmol/L (3.5-5.1) Chloride Level 98 mmol/L (98-107) Carbon Dioxide Level 29 mmol/L (21-32) Anion Gap 7 (6-14) Blood Urea Nitrogen 6 mg/dL (7-20) Creatinine 0.7 mg/dL (0.6-1.0) Estimated GFR (Cockcroft-Gault) 98.9 BUN/Creatinine Ratio 9 (6-20) Glucose Level 100 mg/dL (70-99) Calcium Level 8.9 mg/dL (8.5-10.1) Total Bilirubin 0.6 mg/dL (0.2-1.0) Aspartate Amino Transf (AST/SGOT) 17 U/L (15-37) Alanine Aminotransferase (ALT/SGPT) 13 U/L (14-59) Alkaline Phosphatase 129 U/L (46-116) Total Protein 7.5 g/dL (6.4-8.2) Albumin 3.6 g/dL (3.4-5.0) Albumin/Globulin Ratio 0.9 (1.0-1.7) Lipase 97 U/L (73-393) Ethyl Alcohol Level < 10 mg/dL (0-10) Laboratory Tests Test 11/30/17 23:40 11/30/17 23:59 12/01/17 01:10 Urine Collection Type Unknown Urine Color Yellow Urine Clarity Clear Urine pH 7.5 Urine Specific [place] 1.015 Urine Protein Negative mg/dL (NEG-TRACE) Urine Glucose (UA) Negative mg/dL (NEG) Urine Ketones (Stick) Negative mg/dL (NEG) Urine Blood Negative (NEG) Urine Nitrite Negative (NEG) Urine Bilirubin Negative (NEG) Urine Urobilinogen Dipstick 1.0 mg/dL (0.2 mg/dL) Urine Leukocyte Esterase Small (NEG) Urine RBC Occ /HPF (0-2) Urine WBC 20-40 /HPF (0-4) Urine Squamous Epithelial Cells Mod /LPF Urine Bacteria Few /HPF (0-FEW) Urine Mucus Slight /LPF Urine Trichomonas Present Urine Opiates Screen Neg (NEG) Urine Methadone Screen Neg (NEG) Urine Barbiturates Neg (NEG) Urine Phencyclidine Screen Neg (NEG) Urine Amphetamine/Methamphetamine Neg (NEG) Urine Benzodiazepines Screen Neg (NEG) Urine Cocaine Screen Neg (NEG) Urine Cannabinoids Screen Pos (NEG) Urine Ethyl Alcohol Neg (NEG) Bedside Urine HCG, Qualitative Hcg negative (Negative) White Blood Count 17.9 x10^3/uL (4.0-11.0) Red Blood Count 4.59 x10^6/uL (3.50-5.40) Hemoglobin 14.8 g/dL (12.0-15.5) Hematocrit 41.9 % (36.0-47.0) Mean Corpuscular Volume 91 fL (79-100) Mean Corpuscular Hemoglobin 32 pg (25-35) Mean Corpuscular Hemoglobin Concent 35 g/dL (31-37) Red Cell Distribution Width 12.9 % (11.5-14.5) Platelet Count 267 x10^3/uL (140-400) Neutrophils (%) (Auto) 84 % (31-73) Lymphocytes (%) (Auto) 8 % (24-48) Monocytes (%) (Auto) 6 % (0-9) Eosinophils (%) (Auto) 1 % (0-3) Basophils (%) (Auto) 1 % (0-3) Neutrophils # (Auto) 15.1 x10^3uL (1.8-7.7) Lymphocytes # (Auto) 1.5 x10^3/uL (1.0-4.8) Monocytes # (Auto) 1.1 x10^3/uL (0.0-1.1) Eosinophils # (Auto) 0.2 x10^3/uL (0.0-0.7) Basophils # (Auto) 0.1 x10^3/uL (0.0-0.2) Segmented Neutrophils % 83 % (35-66) Band Neutrophils % 6 % (0-9) Lymphocytes % 7 % (24-48) Monocytes % 4 % (0-10) Platelet Estimate Adequate (ADEQUATE) Sodium Level 134 mmol/L (136-145) Potassium Level 3.9 mmol/L (3.5-5.1) Chloride Level 98 mmol/L (98-107) Carbon Dioxide Level 29 mmol/L (21-32) Anion Gap 7 (6-14) Blood Urea Nitrogen 6 mg/dL (7-20) Creatinine 0.7 mg/dL (0.6-1.0) Estimated GFR (Cockcroft-Gault) 98.9 BUN/Creatinine Ratio 9 (6-20) Glucose Level 100 mg/dL (70-99) Calcium Level 8.9 mg/dL (8.5-10.1) Total Bilirubin 0.6 mg/dL (0.2-1.0) Aspartate Amino Transf (AST/SGOT) 17 U/L (15-37) Alanine Aminotransferase (ALT/SGPT) 13 U/L (14-59) Alkaline Phosphatase 129 U/L (46-116) Total Protein 7.5 g/dL (6.4-8.2) Albumin 3.6 g/dL (3.4-5.0) Albumin/Globulin Ratio 0.9 (1.0-1.7) Lipase 97 U/L (73-393) Ethyl Alcohol Level < 10 mg/dL (0-10) VTE Prophylaxis Ordered VTE Prophylaxis Devices: No VTE Pharmacological Prophylaxi: Yes Assessment/Plan Assessment/Plan Acute abd pain acute joe obesity, BMI 38 GRADY SIEGEL MD Dec 01, 2017 11:31
[2017-12-01] MEDS: fentaNYL PF VIAL 100 MCG/2 ML VIAL IV PRN ×5 (13:11→22:28)
[2017-12-01] MEDS ORDERED: SALIVA STIMULANT AGENT 44ML SPRAY BOTTLE. PO PRN (13:45)
--- NOTE | 2017-12-01 15:26 | PDOC2 ---
GI CONSULT Reason For Consult: Abd pain HPI: HPI: 27 y/o female admitted through ER w/ abd pain, previously d/w Dr. Alejandro. She tells me 3-4 days of upper abd pain, no precipitating events. No pain like this in the past - awoke from sleep a few nights ago. No n/v, no radiation. No diarrhea or constipation though no stool in a couple days. No bleeding. Eating makes no difference in pain - appetite is stable and she's actually hungry. No reflux or dysphagia. No previous EGD or colonoscopy. 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 Diagnosed w/ Hep C in 2009 she thinks, no treatment. Unaware of GB or pancreas history. No NSAIDs. Has 2 daughters (Ages 6 and 7) that do not live with her. WBC 17.9, tox +cannabinoids. On CT: distended GB w/ suspected stone and mild adjacent edema, possible right adnexal cyst, and questionable mild low- attenuation at pancreatic head (superimposed edema w/ proximity to GB possible) . Abd and pelvis US pending. PMH: PMH: substance abuse, Hep C, PCOS, tubal ligation FH: Family History: Other (father -ulcers) Social History: Smoke: <1 pack per day ALCOHOL: none Drugs: Marijuana, Crystal meth (quit 1 week ago) ROS: GEN: Denies fevers, chills, sweats HEENT: Denies blurred vision, sore throat CV: Denies chest pain RESP: Denies shortness of air, cough GI: Per HPI : Denies hematuria, dysuria ENDO: Denies weight changes NEURO: Denies confusion, dizziness MSK: Denies weakness, joint pain/swelling SKIN: Denies jaundice, pruritus Vitals: Vitals: Vital Signs Date Time Temp Pulse Resp B/P (MAP) Pulse Ox O2 Delivery O2 Flow Rate FiO2 12/01/17 13:46 Room Air 12/01/17 11:00 98.6 75 18 115/77 (90) 93 98.6 Labs: Labs: Laboratory Tests Test 11/30/17 23:40 11/30/17 23:59 12/01/17 01:10 Urine Collection Type Unknown Urine Color Yellow Urine Clarity Clear Urine pH 7.5 Urine Specific [place] 1.015 Urine Protein Negative mg/dL (NEG-TRACE) Urine Glucose (UA) Negative mg/dL (NEG) Urine Ketones (Stick) Negative mg/dL (NEG) Urine Blood Negative (NEG) Urine Nitrite Negative (NEG) Urine Bilirubin Negative (NEG) Urine Urobilinogen Dipstick 1.0 mg/dL (0.2 mg/dL) Urine Leukocyte Esterase Small (NEG) Urine RBC Occ /HPF (0-2) Urine WBC 20-40 /HPF (0-4) Urine Squamous Epithelial Cells Mod /LPF Urine Bacteria Few /HPF (0-FEW) Urine Mucus Slight /LPF Urine Trichomonas Present Urine Opiates Screen Neg (NEG) Urine Methadone Screen Neg (NEG) Urine Barbiturates Neg (NEG) Urine Phencyclidine Screen Neg (NEG) Urine Amphetamine/Methamphetamine Neg (NEG) Urine Benzodiazepines Screen Neg (NEG) Urine Cocaine Screen Neg (NEG) Urine Cannabinoids Screen Pos (NEG) Urine Ethyl Alcohol Neg (NEG) Bedside Urine HCG, Qualitative Hcg negative (Negative) White Blood Count 17.9 x10^3/uL (4.0-11.0) Red Blood Count 4.59 x10^6/uL (3.50-5.40) Hemoglobin 14.8 g/dL (12.0-15.5) Hematocrit 41.9 % (36.0-47.0) Mean Corpuscular Volume 91 fL (79-100) Mean Corpuscular Hemoglobin 32 pg (25-35) Mean Corpuscular Hemoglobin Concent 35 g/dL (31-37) Red Cell Distribution Width 12.9 % (11.5-14.5) Platelet Count 267 x10^3/uL (140-400) Neutrophils (%) (Auto) 84 % (31-73) Lymphocytes (%) (Auto) 8 % (24-48) Monocytes (%) (Auto) 6 % (0-9) Eosinophils (%) (Auto) 1 % (0-3) Basophils (%) (Auto) 1 % (0-3) Neutrophils # (Auto) 15.1 x10^3uL (1.8-7.7) Lymphocytes # (Auto) 1.5 x10^3/uL (1.0-4.8) Monocytes # (Auto) 1.1 x10^3/uL (0.0-1.1) Eosinophils # (Auto) 0.2 x10^3/uL (0.0-0.7) Basophils # (Auto) 0.1 x10^3/uL (0.0-0.2) Segmented Neutrophils % 83 % (35-66) Band Neutrophils % 6 % (0-9) Lymphocytes % 7 % (24-48) Monocytes % 4 % (0-10) Platelet Estimate Adequate (ADEQUATE) Sodium Level 134 mmol/L (136-145) Potassium Level 3.9 mmol/L (3.5-5.1) Chloride Level 98 mmol/L (98-107) Carbon Dioxide Level 29 mmol/L (21-32) Anion Gap 7 (6-14) Blood Urea Nitrogen 6 mg/dL (7-20) Creatinine 0.7 mg/dL (0.6-1.0) Estimated GFR (Cockcroft-Gault) 98.9 BUN/Creatinine Ratio 9 (6-20) Glucose Level 100 mg/dL (70-99) Calcium Level 8.9 mg/dL (8.5-10.1) Total Bilirubin 0.6 mg/dL (0.2-1.0) Aspartate Amino Transf (AST/SGOT) 17 U/L (15-37) Alanine Aminotransferase (ALT/SGPT) 13 U/L (14-59) Alkaline Phosphatase 129 U/L (46-116) Total Protein 7.5 g/dL (6.4-8.2) Albumin 3.6 g/dL (3.4-5.0) Albumin/Globulin Ratio 0.9 (1.0-1.7) Lipase 97 U/L (73-393) Ethyl Alcohol Level < 10 mg/dL (0-10) Allergies: Coded Allergies: No Known Drug Allergies (Unverified , 07/18/13) Medications: Current Medications Medications (Trade) Dose Ordered Sig/Issa Route PRN Reason Start Time Stop Time Status Last Admin Dose Admin Sodium Chloride 1,000 ml @ 1,000 mls/hr 1X ONCE IV 12/01/17 00:30 12/01/17 01:29 DC 12/01/17 01:31 Ketorolac Tromethamine (Toradol 30mg Vial) 30 mg 1X ONCE IV 12/01/17 02:00 12/01/17 02:01 DC 12/01/17 01:49 Iohexol (Omnipaque 300 Mg/ml) 75 ml 1X ONCE IV 12/01/17 03:00 12/01/17 03:01 DC 12/01/17 02:30 Piperacillin Sod/ Tazobactam Sod 3.375 gm/Sodium Chloride 50 ml @ 100 mls/hr 1X ONCE IV 12/01/17 05:30 12/01/17 05:59 DC 12/01/17 05:10 Fentanyl Citrate (Fentanyl 2ml Vial) 50 mcg 1X ONCE IV 12/01/17 06:00 12/01/17 06:01 DC 12/01/17 05:47 Ondansetron HCl (Zofran) 4 mg 1X ONCE IV 12/01/17 06:00 12/01/17 06:01 DC 12/01/17 05:47 Morphine Sulfate (Morphine Sulfate) 4 mg PRN Q2HR PRN IV PAIN 12/01/17 08:15 12/01/17 09:22 Sodium Chloride 1,000 ml @ 125 mls/hr Q8H IV 12/01/17 08:15 12/01/17 09:22 Fentanyl Citrate (Fentanyl 2ml Vial) 50 mcg PRN Q4HRS PRN IV PAIN 12/01/17 10:30 12/01/17 12:58 DC 12/01/17 11:13 Fentanyl Citrate (Fentanyl 2ml Vial) 50 mcg PRN Q2HR PRN IV PAIN 12/01/17 13:00 12/01/17 13:11 Imaging: Imaging: CT A/P IMPRESSION: 1. Gallbladder is distended with suspected gallstones within as well as mild adjacent edema. Would correlate with symptoms in the region since early cholecystitis could have this appearance in the correct clinical context. If further information is desired follow-up ultrasound or nuclear hepatic biliary scan could BE obtained. 2. Possible cystic lesion right adnexa. 3. Questionable mild low-attenuation at pancreatic head. Cannot exclude superimposed edema to this area given proximity to gallbladder. PE: GEN: NAD HEENT: Atraumatic, PERRL, poor dentition LUNGS: CTAB HEART: RRR ABD: NABS, soft/obese, RUQ/epigastric tenderness EXTREMITY: No edema SKIN: No rashes, no jaundice NEURO/PSYCH: A & O 3, tearful A/P: A/P: Upper abd pain Leukocytosis Abnormal CT - distended GB, possible gallstones, possible right adnexal cyst, questionable finding at pancreatic head Hep C Substance abuse - quit meth 1 week ago -- Await US re: abnormal GB on CT, also for liver eval. Confirm Hep C. Defer diet to surgery. CORDELIA THEODORE Dec 01, 2017 15:26
[2017-12-01] MEDS: PIPERACILLIN/TAZOBACTAM 3.375 GM in IV NORMAL SALINE 50ML 50 ML IV SCH (18:27)
[2017-12-01 19:00] VITALS: BP 126/70
[2017-12-01 23:00] VITALS: BP 134/70
[2017-12-02] MEDS: IV NORMAL SALINE 1000ML BAG 1,000 ML IV SCH ×3 (00:42→17:32)
[2017-12-02] MEDS: PIPERACILLIN/TAZOBACTAM 3.375 GM in IV NORMAL SALINE 50ML 50 ML IV SCH ×4 (00:42→17:32)
[2017-12-02] MEDS: fentaNYL PF VIAL 100 MCG/2 ML VIAL IV PRN ×8 (00:46→22:52)
[2017-12-02 03:00] VITALS: BP 135/66
[2017-12-02 07:00] VITALS: BP 114/62
--- NOTE | 2017-12-02 08:23 | RAD ---
Right upper quadrant abdominal ultrasound, 12/01/2017: HISTORY: Pain, check pancreas The gallbladder is mildly distended. It contains multiple echogenic foci with posterior acoustic shadowing compatible with gallstones. Its wall appears slightly thickened. The liver is mildly enlarged measuring just over 20 cm in craniocaudad extent at the level the right lobe. No hepatic mass or intrahepatic bile duct dilatation is seen. The common hepatic duct was not clearly visualized. A segment of what appears to be the common bile duct is dilated measuring approximately 14 mm. A small echogenic internal focus raises the possibility of calculus or other debris. Only limited portions of the pancreatic body were visible and are unremarkable. The right kidney shows no abnormality. IMPRESSION: 1. Gallbladder distention with cholelithiasis and mild gallbladder wall thickening raising the possibility of acute cholecystitis. 2. Common bile duct distention with possible choledocholithiasis. 3. Hepatomegaly. Pelvic ultrasound, 12/01/2017: HISTORY: Right adnexal mass Transabdominal and transvaginal scans were obtained. The transabdominal scans are of limited utility due to lack of bladder distention. On the transvaginal scans the uterus measures 8.7 x 4.7 x 5.5 cm. The central uterine echo complex measures 11 mm. No uterine mass is evident. The right ovary measures 3.0 x 2.8 x 2.5 cm. It contains a 2.5 cm septated cyst or cyst cluster. The left ovary measures 3.0 x 2.2 x 2.4 cm. Blood flow is present in both ovaries. There are prominent periuterine vessels bilaterally. A small amount of free fluid is present in the cul-de-sac. IMPRESSION: 1. Small complicated right ovarian cyst or cyst cluster. Sonographic follow-up is suggested. 2. Small amount of free fluid in the pelvis. Electronically signed by: Landen Bradley MD (12/02/2017 8:20 AM) [facility]
--- NOTE | 2017-12-02 10:15 | PDOC ---
SURGICAL PROGRESS NOTE Subjective Patient complaining of abdominal pain no nausea or vomiting also having some right lower quadrant cramping Vital Signs Vital Signs Date Time Temp Pulse Resp B/P (MAP) Pulse Ox O2 Delivery O2 Flow Rate FiO2 12/02/17 08:45 16 98 Room Air 12/02/17 07:00 97.5 70 114/62 (79) 97.5 I&O Intake and Output 12/02/17 07:00 Intake Total 0 ml Balance 0 ml Intake Oral 0 ml # Voids 7 PATIENT HAS A SUMMERS: No General: Alert, Oriented X3, Cooperative, mild distress Abdomen: Normal bowel sounds, Soft, Other (tender to palpation right upper quadrant) Labs Laboratory Tests Test 11/30/17 23:40 11/30/17 23:59 12/01/17 01:10 Urine Collection Type Unknown Urine Color Yellow Urine Clarity Clear Urine pH 7.5 Urine Specific [place] 1.015 Urine Protein Negative mg/dL (NEG-TRACE) Urine Glucose (UA) Negative mg/dL (NEG) Urine Ketones (Stick) Negative mg/dL (NEG) Urine Blood Negative (NEG) Urine Nitrite Negative (NEG) Urine Bilirubin Negative (NEG) Urine Urobilinogen Dipstick 1.0 mg/dL (0.2 mg/dL) Urine Leukocyte Esterase Small (NEG) Urine RBC Occ /HPF (0-2) Urine WBC 20-40 /HPF (0-4) Urine Squamous Epithelial Cells Mod /LPF Urine Bacteria Few /HPF (0-FEW) Urine Mucus Slight /LPF Urine Trichomonas Present Urine Opiates Screen Neg (NEG) Urine Methadone Screen Neg (NEG) Urine Barbiturates Neg (NEG) Urine Phencyclidine Screen Neg (NEG) Urine Amphetamine/Methamphetamine Neg (NEG) Urine Benzodiazepines Screen Neg (NEG) Urine Cocaine Screen Neg (NEG) Urine Cannabinoids Screen Pos (NEG) Urine Ethyl Alcohol Neg (NEG) Bedside Urine HCG, Qualitative Hcg negative (Negative) White Blood Count 17.9 x10^3/uL (4.0-11.0) Red Blood Count 4.59 x10^6/uL (3.50-5.40) Hemoglobin 14.8 g/dL (12.0-15.5) Hematocrit 41.9 % (36.0-47.0) Mean Corpuscular Volume 91 fL (79-100) Mean Corpuscular Hemoglobin 32 pg (25-35) Mean Corpuscular Hemoglobin Concent 35 g/dL (31-37) Red Cell Distribution Width 12.9 % (11.5-14.5) Platelet Count 267 x10^3/uL (140-400) Neutrophils (%) (Auto) 84 % (31-73) Lymphocytes (%) (Auto) 8 % (24-48) Monocytes (%) (Auto) 6 % (0-9) Eosinophils (%) (Auto) 1 % (0-3) Basophils (%) (Auto) 1 % (0-3) Neutrophils # (Auto) 15.1 x10^3uL (1.8-7.7) Lymphocytes # (Auto) 1.5 x10^3/uL (1.0-4.8) Monocytes # (Auto) 1.1 x10^3/uL (0.0-1.1) Eosinophils # (Auto) 0.2 x10^3/uL (0.0-0.7) Basophils # (Auto) 0.1 x10^3/uL (0.0-0.2) Segmented Neutrophils % 83 % (35-66) Band Neutrophils % 6 % (0-9) Lymphocytes % 7 % (24-48) Monocytes % 4 % (0-10) Platelet Estimate Adequate (ADEQUATE) Sodium Level 134 mmol/L (136-145) Potassium Level 3.9 mmol/L (3.5-5.1) Chloride Level 98 mmol/L (98-107) Carbon Dioxide Level 29 mmol/L (21-32) Anion Gap 7 (6-14) Blood Urea Nitrogen 6 mg/dL (7-20) Creatinine 0.7 mg/dL (0.6-1.0) Estimated GFR (Cockcroft-Gault) 98.9 BUN/Creatinine Ratio 9 (6-20) Glucose Level 100 mg/dL (70-99) Calcium Level 8.9 mg/dL (8.5-10.1) Total Bilirubin 0.6 mg/dL (0.2-1.0) Aspartate Amino Transf (AST/SGOT) 17 U/L (15-37) Alanine Aminotransferase (ALT/SGPT) 13 U/L (14-59) Alkaline Phosphatase 129 U/L (46-116) Total Protein 7.5 g/dL (6.4-8.2) Albumin 3.6 g/dL (3.4-5.0) Albumin/Globulin Ratio 0.9 (1.0-1.7) Lipase 97 U/L (73-393) Ethyl Alcohol Level < 10 mg/dL (0-10) Hepatitis C IgG Antibody Reactive (Nonreactive) I have reviewed the following Ultrasound reviewed showing gallstones mildly thickened gallbladder wall Problem List Problems Medical Problems: (1) Acute cholecystitis Status: Acute Assessment/Plan 27-year-old female with right upper quadrant abdominal pain ultrasound showing gallstones and thickened gallbladder wall consistent with cholecystitis plan for laparoscopic cholecystectomy tomorrow 12/03 BONI HOWARD MD Dec 02, 2017 10:15
[2017-12-02 11:00] VITALS: BP 122/80
--- NOTE | 2017-12-02 13:21 | PDOC ---
PROGRESS NOTES Chief Complaint Chief Complaint acute abdominal pain acute joe with thickened gallbladder wall tobacco use d/o obesity, BMI 43 History of Present Illness History of Present Illness gen surg following, plan lap joe tomorrow Vitals Vitals Vital Signs Date Time Temp Pulse Resp B/P (MAP) Pulse Ox O2 Delivery O2 Flow Rate FiO2 12/02/17 11:00 98.2 60 16 122/80 (94) 95 Room Air 98.2 Physical Exam General: Alert, Oriented X3, Cooperative, mild distress Heart: Regular rate, Normal S1, Normal S2, No murmurs Abdomen: Normal bowel sounds, Soft, Other (tender to palpation right upper quadrant) Extremities: No cyanosis, No edema, Normal pulses Skin: No rashes, No significant lesion Assessment and Plan Assessmemt and Plan Problems Medical Problems: (1) Acute cholecystitis Status: Acute Comment Review of Relevant I have reviewed the following items estela (where applicable) has been applied. Labs Laboratory Tests Test 11/30/17 23:40 11/30/17 23:59 12/01/17 01:10 Urine Collection Type Unknown Urine Color Yellow Urine Clarity Clear Urine pH 7.5 Urine Specific [place] 1.015 Urine Protein Negative mg/dL (NEG-TRACE) Urine Glucose (UA) Negative mg/dL (NEG) Urine Ketones (Stick) Negative mg/dL (NEG) Urine Blood Negative (NEG) Urine Nitrite Negative (NEG) Urine Bilirubin Negative (NEG) Urine Urobilinogen Dipstick 1.0 mg/dL (0.2 mg/dL) Urine Leukocyte Esterase Small (NEG) Urine RBC Occ /HPF (0-2) Urine WBC 20-40 /HPF (0-4) Urine Squamous Epithelial Cells Mod /LPF Urine Bacteria Few /HPF (0-FEW) Urine Mucus Slight /LPF Urine Trichomonas Present Urine Opiates Screen Neg (NEG) Urine Methadone Screen Neg (NEG) Urine Barbiturates Neg (NEG) Urine Phencyclidine Screen Neg (NEG) Urine Amphetamine/Methamphetamine Neg (NEG) Urine Benzodiazepines Screen Neg (NEG) Urine Cocaine Screen Neg (NEG) Urine Cannabinoids Screen Pos (NEG) Urine Ethyl Alcohol Neg (NEG) Bedside Urine HCG, Qualitative Hcg negative (Negative) White Blood Count 17.9 x10^3/uL (4.0-11.0) Red Blood Count 4.59 x10^6/uL (3.50-5.40) Hemoglobin 14.8 g/dL (12.0-15.5) Hematocrit 41.9 % (36.0-47.0) Mean Corpuscular Volume 91 fL (79-100) Mean Corpuscular Hemoglobin 32 pg (25-35) Mean Corpuscular Hemoglobin Concent 35 g/dL (31-37) Red Cell Distribution Width 12.9 % (11.5-14.5) Platelet Count 267 x10^3/uL (140-400) Neutrophils (%) (Auto) 84 % (31-73) Lymphocytes (%) (Auto) 8 % (24-48) Monocytes (%) (Auto) 6 % (0-9) Eosinophils (%) (Auto) 1 % (0-3) Basophils (%) (Auto) 1 % (0-3) Neutrophils # (Auto) 15.1 x10^3uL (1.8-7.7) Lymphocytes # (Auto) 1.5 x10^3/uL (1.0-4.8) Monocytes # (Auto) 1.1 x10^3/uL (0.0-1.1) Eosinophils # (Auto) 0.2 x10^3/uL (0.0-0.7) Basophils # (Auto) 0.1 x10^3/uL (0.0-0.2) Segmented Neutrophils % 83 % (35-66) Band Neutrophils % 6 % (0-9) Lymphocytes % 7 % (24-48) Monocytes % 4 % (0-10) Platelet Estimate Adequate (ADEQUATE) Sodium Level 134 mmol/L (136-145) Potassium Level 3.9 mmol/L (3.5-5.1) Chloride Level 98 mmol/L (98-107) Carbon Dioxide Level 29 mmol/L (21-32) Anion Gap 7 (6-14) Blood Urea Nitrogen 6 mg/dL (7-20) Creatinine 0.7 mg/dL (0.6-1.0) Estimated GFR (Cockcroft-Gault) 98.9 BUN/Creatinine Ratio 9 (6-20) Glucose Level 100 mg/dL (70-99) Calcium Level 8.9 mg/dL (8.5-10.1) Total Bilirubin 0.6 mg/dL (0.2-1.0) Aspartate Amino Transf (AST/SGOT) 17 U/L (15-37) Alanine Aminotransferase (ALT/SGPT) 13 U/L (14-59) Alkaline Phosphatase 129 U/L (46-116) Total Protein 7.5 g/dL (6.4-8.2) Albumin 3.6 g/dL (3.4-5.0) Albumin/Globulin Ratio 0.9 (1.0-1.7) Lipase 97 U/L (73-393) Ethyl Alcohol Level < 10 mg/dL (0-10) Hepatitis C IgG Antibody Reactive (Nonreactive) Medications Current Medications Sodium Chloride 1,000 ml @ 1,000 mls/hr 1X ONCE IV Last administered on at 01:31; Start 12/01/17 at 00:30; Stop 12/01/17 at 01:29; Status DC Ketorolac Tromethamine (Toradol 30mg Vial) 30 mg 1X ONCE IV Last administered on 12/01/17at 01:49; Start 12/01/17 at 02:00; Stop 12/01/17 at 02:01; Status DC Iohexol (Omnipaque 300 Mg/ml) 75 ml 1X ONCE IV Last administered on 12/01/17at 02:30; Start 12/01/17 at 03:00; Stop 12/01/17 at 03:01; Status DC Info (CONTRAST GIVEN -- Rx MONITORING) 1 each PRN DAILY PRN MC SEE COMMENTS; Start 12/01/17 at 02:30; Stop 12/03/17 at 02:29 Piperacillin Sod/ Tazobactam Sod 3.375 gm/Sodium Chloride 50 ml @ 100 mls/hr 1X ONCE IV Last administered on 12/01/17at 05:10; Start 12/01/17 at 05:30; Stop 12/01/17 at 05:59; Status DC Fentanyl Citrate (Fentanyl 2ml Vial) 50 mcg 1X ONCE IV Last administered on at 05:47; Start 12/01/17 at 06:00; Stop 12/01/17 at 06:01; Status DC Ondansetron HCl (Zofran) 4 mg 1X ONCE IV Last administered on 12/01/17at 05:47 ; Start 12/01/17 at 06:00; Stop 12/01/17 at 06:01; Status DC Ondansetron HCl (Zofran) 4 mg PRN Q6HRS PRN IV NAUSEA/VOMITING; Start 12/01/17 at 08:15 Morphine Sulfate (Morphine Sulfate) 4 mg PRN Q2HR PRN IV PAIN Last administered on 12/01/17at 09:22; Start 12/01/17 at 08:15 Sodium Chloride 1,000 ml @ 125 mls/hr Q8H IV Last administered on 12/02/17at 08 :11; Start 12/01/17 at 08:15 Fentanyl Citrate (Fentanyl 2ml Vial) 50 mcg PRN Q4HRS PRN IV PAIN Last administered on 12/01/17at 11:13; Start 12/01/17 at 10:30; Stop 12/01/17 at 12:58 ; Status DC Ondansetron HCl (Zofran) 4 mg PRN Q6HRS PRN IV NAUSEA/VOMITING; Start 12/01/17 at 10:30; Stop 12/01/17 at 10:30; Status DC Piperacillin Sod/ Tazobactam Sod 3.375 gm/Sodium Chloride 50 ml @ 100 mls/hr Q6HRS IV Last administered on 12/02/17at 12:38; Start 12/01/17 at 18:00 Fentanyl Citrate (Fentanyl 2ml Vial) 50 mcg PRN Q2HR PRN IV MODERATE PAIN Last administered on 12/01/17at 20:27; Start 12/01/17 at 13:00 Saliva Substitute (Biotene Moisturizing Mouth) 2 spray PRN Q15MIN PRN PO DRY MOUTH; Start 12/01/17 at 13:45 Fentanyl Citrate (Fentanyl 2ml Vial) 75 mcg PRN Q2HR PRN IV SEVERE PAIN Last administered on 12/02/17at 08:12; Start 12/01/17 at 22:00 Cefazolin Sodium/ Dextrose 50 ml @ 100 mls/hr 1X PERIOP ONCE IV ; Start at 10:30; Stop 12/03/17 at 10:59 Lactobacillus Rhamnosus (Culturelle) 1 cap BID PO ; Start 12/02/17 at 21:00 Ondansetron HCl (Zofran) 4 mg PRN Q6HRS PRN IV NAUSEA/VOMITING; Start 12/03/17 at 07:00; Stop 12/04/17 at 06:59 Fentanyl Citrate (Fentanyl 2ml Vial) 25 mcg PRN Q5MIN PRN IV MILD PAIN; Start 12/03/17 at 07:00; Stop 12/04/17 at 06:59 Fentanyl Citrate (Fentanyl 2ml Vial) 50 mcg PRN Q5MIN PRN IV MODERATE TO SEVERE PAIN; Start 12/03/17 at 07:00; Stop 12/04/17 at 06:59 Morphine Sulfate (Morphine Sulfate) 1 mg PRN Q10MIN PRN IV SEVERE PAIN; Start 12/03/17 at 07:00; Stop 12/04/17 at 06:59 Ringer's Solution 1,000 ml @ 30 mls/hr Q24H IV ; Start 12/03/17 at 07:00; Stop 12/03/17 at 18:59 Lidocaine HCl (Xylocaine-Mpf 1% 2ml Vial) 2 ml PRN 1X PRN ID IV START; Start at 07:00; Stop 12/04/17 at 06:59 Hydromorphone HCl (Dilaudid) 0.5 mg PRN Q10MIN PRN IV SEV PAIN, Second choice; Start 12/03/17 at 07:00; Stop 12/04/17 at 06:59 Prochlorperazine Edisylate (Compazine) 5 mg PACU PRN PRN IV NAUSEA, MRX1; Start 12/03/17 at 07:00; Stop 12/04/17 at 06:59 Vitals/I & O Vital Sign - Last 24 Hours 12/01/17 12/01/17 12/01/17 12/01/17 16:00 18:27 19:00 20:00 Temp 97.3 97.3 Pulse 65 Resp 16 18 B/P (MAP) 126/70 (88) Pulse Ox 95 O2 Delivery Room Air Room Air Room Air 12/01/17 12/01/17 12/01/17 12/01/17 20:27 20:57 22:28 23:00 Temp 98.6 98.6 Pulse 69 Resp 18 20 20 18 B/P (MAP) 134/70 (91) Pulse Ox 93 93 93 96 O2 Delivery Room Air Room Air Room Air Room Air 12/02/17 12/02/17 12/02/17 12/02/17 00:46 02:44 03:00 05:10 Temp 98.1 98.1 Pulse 68 Resp 18 20 18 20 B/P (MAP) 135/66 (89) Pulse Ox 96 96 92 92 O2 Delivery Room Air Room Air Room Air Room Air 12/02/17 12/02/17 12/02/17 12/02/17 07:00 08:00 08:12 08:45 Temp 97.5 97.5 Pulse 70 Resp 16 16 16 B/P (MAP) 114/62 (79) Pulse Ox 95 96 98 O2 Delivery Room Air Room Air Room Air Room Air 12/02/17 11:00 Temp 98.2 98.2 Pulse 60 Resp 16 B/P (MAP) 122/80 (94) Pulse Ox 95 O2 Delivery Room Air Intake and Output 12/01/17 12/01/17 12/02/17 15:00 23:00 07:00 Intake Total 0 ml Balance 0 ml GRADY SIEGEL MD Dec 02, 2017 13:21
--- NOTE | 2017-12-02 13:45 | PDOC ---
Objective: Objective: D/w RN earlier - asking for pain meds round the clock, c/o RLQ pain. Vital Signs: Vital Signs Date Time Temp Pulse Resp B/P (MAP) Pulse Ox O2 Delivery O2 Flow Rate FiO2 12/02/17 11:00 98.2 60 16 122/80 (94) 95 Room Air 98.2 Imaging: RUQ US IMPRESSION: 1. Gallbladder distention with cholelithiasis and mild gallbladder wall thickening raising the possibility of acute cholecystitis. 2. Common bile duct distention with possible choledocholithiasis. 3. Hepatomegaly. Pelvis US IMPRESSION: 1. Small complicated right ovarian cyst or cyst cluster. Sonographic follow-up is suggested. 2. Small amount of free fluid in the pelvis. PE: GEN: NAD LUNGS: CTAB HEART: RRR ABD: right-sided discomfort NEURO/PSYCH: A & O 3 A/P: Cholelithiasis, possible cholecystitis Hep C Substance abuse -- Plans for cholecystectomy tomorrow. Encouraged Hep C treatment as otupt, needs insurance. CORDELIA THEODORE Dec 02, 2017 13:45
[2017-12-02] MEDS ORDERED: BISACODYL 10 MG SUPP.RECT. PR PRN (14:00)
[2017-12-02 15:00] VITALS: BP 141/88
[2017-12-02 19:00] VITALS: BP 144/84
[2017-12-02] MEDS: LACTOBACILLUS RHAMNOSUS GG 1 CAPSULE. PO SCH (20:20)
[2017-12-02 23:00] VITALS: BP 133/74
[2017-12-03] VITALS (11 sets, daily range): BP systolic 96–148; BP diastolic 60–82
[2017-12-03] MEDS: fentaNYL PF VIAL 100 MCG/2 ML VIAL IV PRN ×7 (01:09→13:26)
[2017-12-03] MEDS: PIPERACILLIN/TAZOBACTAM 3.375 GM in IV NORMAL SALINE 50ML 50 ML IV SCH ×5 (01:09→23:57)
[2017-12-03] MEDS: IV NORMAL SALINE 1000ML BAG 1,000 ML IV SCH ×4 (01:10→23:57)
[2017-12-03] MEDS ORDERED: LIDOCAINE 1% PF 2 ML VIAL. ID PRN (07:00)
[2017-12-03] MEDS ORDERED: HYDROmorphone 2 MG/ML VIAL IV PRN (07:00)
[2017-12-03] MEDS ORDERED: fentaNYL PF VIAL 100 MCG/2 ML VIAL IV PRN (07:00)
[2017-12-03] MEDS ORDERED: ONDANSETRON PF 4 MG/2 ML VIAL. IV PRN (07:00)
[2017-12-03] MEDS ORDERED: MORPHINE SULFATE 2 MG/ML VIAL. IV PRN (07:00)
[2017-12-03 07:16] LABS: ALBUMIN 2.5 g/dL (3.4-5.0); ALBUMIN/GLOBULIN RATIO 0.6 (1.0-1.7); CALCIUM 8.5 mg/dL (8.5-10.1); CREATININE 0.7 mg/dL (0.6-1.0); GFR 98.9; TOTAL BILIRUBIN 0.6 mg/dL (0.2-1.0); TOTAL PROTEIN 6.8 g/dL (6.4-8.2)
[2017-12-03 07:24] LABS: POTASSIUM 3.6 mmol/L (3.5-5.1); PROTHROMBIN TIME PATIENT 14.4 SEC (11.7-14.0)
[2017-12-03] MEDS: LACTOBACILLUS RHAMNOSUS GG 1 CAPSULE. PO SCH ×2 (07:51→19:59)
[2017-12-03] MEDS ORDERED: BUPIVACAINE-EPI 0.25%-1:200000 50 ML VIAL. ONE (09:34)
[2017-12-03] MEDS ORDERED: SURGICEL HEMOSTAT 4X8 EACH. ONE (09:35)
[2017-12-03] MEDS ORDERED: IOHEXOL 300 MG/ML 100ML VIAL. ONE (09:35)
[2017-12-03 09:56] LABS: BASO % 1 % (0-3); EOS # 0.2 x10^3/uL (0.0-0.7); EOS % 3 % (0-3); HEMATOCRIT 37.6 % (36.0-47.0); LYMPH # 1.6 x10^3/uL (1.0-4.8); LYMPH % 19 % (24-48); MEAN CORPUSCULAR HEMOGLOBIN 32 pg (25-35); MEAN CORPUSCULAR HGB CONC 35 g/dL (31-37); MEAN CORPUSCULAR VOLUME 91 fL (79-100); MONO # 0.6 x10^3/uL (0.0-1.1); MONO % 7 % (0-9); NEUT # 5.9 x10^3uL (1.8-7.7); NEUT % 70 % (31-73); PLATELET COUNT 244 x10^3/uL (140-400); RED BLOOD COUNT 4.12 x10^6/uL (3.50-5.40); RED CELL DISTRIBUTION WIDTH 12.8 % (11.5-14.5); WHITE BLOOD COUNT 8.4 x10^3/uL (4.0-11.0)
[2017-12-03] MEDS ORDERED: ROCURONIUM 50 MG/5 ML VIAL. ONE ×2 (10:20→11:43)
[2017-12-03] MEDS ORDERED: ROCURONIUM 100 MG/10 ML VIAL. ONE (10:20)
[2017-12-03] MEDS ORDERED: fentaNYL PF VIAL 100 MCG/2 ML VIAL ONE ×2 (10:21→11:31)
[2017-12-03] MEDS ORDERED: MIDAZOLAM HCL/PF 2 MG/2 ML VIAL. ONE (10:21)
[2017-12-03] MEDS ORDERED: NEOSTIGMINE METHYLSULFATE 5 MG/5 ML SYRINGE. ONE (10:21)
[2017-12-03] MEDS ORDERED: GLYCOPYRROLATE 1 MG/5 ML VIAL. ONE (10:21)
[2017-12-03] MEDS ORDERED: KETOROLAC 30 MG/ML INJ FOR OR. INJ ONE (10:22)
[2017-12-03] MEDS ORDERED: DEXAMETHASONE SOD PHOS 20 MG/5 ML VIAL. ONE (10:22)
[2017-12-03] MEDS ORDERED: LIDOCAINE 2% PF Vial for OR 5 ML VIAL. ONE (10:22)
[2017-12-03] MEDS ORDERED: ONDANSETRON PF 4 MG/2 ML VIAL. ONE (10:22)
[2017-12-03 10:28] LABS: HCV ULTRA QUANT PCR HCV Not Detected IU/mL (.)
[2017-12-03] MEDS: IV RINGERS,LACTATED 1000ML 1,000 ML IV SCH ×2 (10:29→12:43)
[2017-12-03] MEDS ORDERED: ceFAZolin 2GM PREMIX 2 GM/50 ML BAG IV ONE (12:00)
--- NOTE | 2017-12-03 12:22 | PDOC4 ---
Operative Note Operative Note Date: 12/03/2017 Preoperative diagnosis: Acute cholecystitis Postoperative diagnosis: Same Procedure: Laparoscopic cholecystectomy attempted intraoperative cholangiogram Surgeon: Shahab Specimen: Gallbladder Dictation: Patient is a 27-year-old female is mated to the hospital with right upper quadrant abdominal pain and ultrasound showing acute cholecystitis procedure of lap scopic cholecystectomy was explained to the patient detail was benefits were also discussed including bleeding infection injury to intra- abdominal contents possibly necessitating further or open operations. Patient seemed understanding gave both verbal and written consent had procedure performed. Patient was taken to the operating room placed the supine position general anesthesia was initiated once patient was asleep and intubated her abdomen was prepped and draped usual sterile fashion using ChloraPrep. An area just below the umbilicus was injected with quarter percent Marcaine with epinephrine incisions made lead blade scalpel varies needle was placed within the abdomen a pneumoperitoneum was achieved once this complete a 11 mm port was placed in a 5 millimeter camera was placed within the abdomen. Abdomen was inspected no other at maladies were noted other than the gallbladder was quite distended and inflamed a 5 mm port was placed in the epigastrium a second 5 mm port was placed in the right upper quadrant and one in the right mid abdomen. The gallbladder was aspirated of its contents proximally 120 mL of bilious material dome of the gallbladder's grasped retracted cephalad the infundibulum of the gallbladder's grasped retracted laterally exposing the triangle adherent tissues the triangle are taken down with blunt dissection exposing the cystic duct and cystic artery the artery was doubly clipped and transected the cystic duct was clipped on the gallbladder side and partially open with Endo Carmina scissors multiple attempts were made to pass a cholangiocatheter within the cystic duct was unable to pass duct was doubly clipped and transected the gallbladder was taken off the liver with hook left cautery placed in Endo Catch bag and removed from the umbilicus the right upper quadrant was irrigated and suctioned dry hemostasis didn't be appropriate and the pneumoperitoneum was reduced all ports removed fascial defect at the umbilicus was closed with a [id number] 0 Vicryl suture and the skin was approximated all port sites 4 septic or Monocryl. Mastisol Steri-Strips and Band-Aids were applied as dressings. Patient was awakened and extubated in the operating room taken recovery in stable condition all sponge instrument needle counts listed as correct estimated blood loss 40 mL BONI HOWARD MD Dec 03, 2017 12:22
[2017-12-03] MEDS ORDERED: oxyCODONE/APAP 5/325 1 TAB TABLET PO PRN (12:30)
--- NOTE | 2017-12-03 12:33 | PDOC ---
Objective: Vital Signs: Vital Signs Date Time Temp Pulse Resp B/P (MAP) Pulse Ox O2 Delivery O2 Flow Rate FiO2 12/03/17 10:40 16 96 Room Air 12/03/17 10:14 97 55 97.0 12/03/17 10:07 121/73 Labs: Laboratory Tests Test 12/03/17 05:12 12/03/17 09:10 Prothrombin Time 14.4 SEC Prothromb Time International Ratio 1.2 Sodium Level 139 mmol/L Potassium Level 3.6 mmol/L Chloride Level 102 mmol/L Carbon Dioxide Level 29 mmol/L Anion Gap 8 Blood Urea Nitrogen 7 mg/dL Creatinine 0.7 mg/dL Estimated GFR (Cockcroft-Gault) 98.9 BUN/Creatinine Ratio 10 Glucose Level 73 mg/dL Calcium Level 8.5 mg/dL Total Bilirubin 0.6 mg/dL Aspartate Amino Transf (AST/SGOT) 18 U/L Alanine Aminotransferase (ALT/SGPT) 22 U/L Alkaline Phosphatase 97 U/L Total Protein 6.8 g/dL Albumin 2.5 g/dL Albumin/Globulin Ratio 0.6 White Blood Count 8.4 x10^3/uL Red Blood Count 4.12 x10^6/uL Hemoglobin 13.0 g/dL Hematocrit 37.6 % Mean Corpuscular Volume 91 fL Mean Corpuscular Hemoglobin 32 pg Mean Corpuscular Hemoglobin Concent 35 g/dL Red Cell Distribution Width 12.8 % Platelet Count 244 x10^3/uL Neutrophils (%) (Auto) 70 % Lymphocytes (%) (Auto) 19 % Monocytes (%) (Auto) 7 % Eosinophils (%) (Auto) 3 % Basophils (%) (Auto) 1 % Neutrophils # (Auto) 5.9 x10^3uL Lymphocytes # (Auto) 1.6 x10^3/uL Monocytes # (Auto) 0.6 x10^3/uL Eosinophils # (Auto) 0.2 x10^3/uL Basophils # (Auto) 0.0 x10^3/uL PE: Out of room - no exam. A/P: Abd pain, cholelithiasis Hep C - IgG Ab +, PCR not detected -- Will follow after surgery. CORDELIA THEODORE Dec 03, 2017 12:33
[2017-12-03] MEDS: PROCHLORPERAZINE 10 MG/2 ML VIAL. IV PRN ×2 (12:43→13:26)
--- NOTE | 2017-12-03 12:46 | PDOC ---
PROGRESS NOTES Chief Complaint Chief Complaint acute abdominal pain acute joe with thickened gallbladder wall tobacco use d/o obesity, BMI 43 has psych disability, NOS, PAT team here to follow, discussed with Santiago History of Present Illness History of Present Illness gen surg following, plan lap joe this AM Vitals Vitals Vital Signs Date Time Temp Pulse Resp B/P (MAP) Pulse Ox O2 Delivery O2 Flow Rate FiO2 12/03/17 10:40 16 96 Room Air 12/03/17 10:14 97 55 97.0 12/03/17 10:07 121/73 Physical Exam General: Alert, Oriented X3, Cooperative, mild distress Heart: Regular rate, Normal S1, Normal S2, No murmurs Abdomen: Normal bowel sounds, Soft, Other (tender to palpation right upper quadrant) Extremities: No cyanosis, No edema, Normal pulses Skin: No rashes, No significant lesion Labs LABS Laboratory Tests Test 12/03/17 05:12 12/03/17 09:10 Prothrombin Time 14.4 SEC (11.7-14.0) Prothromb Time International Ratio 1.2 (0.8-1.1) Sodium Level 139 mmol/L (136-145) Potassium Level 3.6 mmol/L (3.5-5.1) Chloride Level 102 mmol/L (98-107) Carbon Dioxide Level 29 mmol/L (21-32) Anion Gap 8 (6-14) Blood Urea Nitrogen 7 mg/dL (7-20) Creatinine 0.7 mg/dL (0.6-1.0) Estimated GFR (Cockcroft-Gault) 98.9 BUN/Creatinine Ratio 10 (6-20) Glucose Level 73 mg/dL (70-99) Calcium Level 8.5 mg/dL (8.5-10.1) Total Bilirubin 0.6 mg/dL (0.2-1.0) Aspartate Amino Transf (AST/SGOT) 18 U/L (15-37) Alanine Aminotransferase (ALT/SGPT) 22 U/L (14-59) Alkaline Phosphatase 97 U/L (46-116) Total Protein 6.8 g/dL (6.4-8.2) Albumin 2.5 g/dL (3.4-5.0) Albumin/Globulin Ratio 0.6 (1.0-1.7) White Blood Count 8.4 x10^3/uL (4.0-11.0) Red Blood Count 4.12 x10^6/uL (3.50-5.40) Hemoglobin 13.0 g/dL (12.0-15.5) Hematocrit 37.6 % (36.0-47.0) Mean Corpuscular Volume 91 fL (79-100) Mean Corpuscular Hemoglobin 32 pg (25-35) Mean Corpuscular Hemoglobin Concent 35 g/dL (31-37) Red Cell Distribution Width 12.8 % (11.5-14.5) Platelet Count 244 x10^3/uL (140-400) Neutrophils (%) (Auto) 70 % (31-73) Lymphocytes (%) (Auto) 19 % (24-48) Monocytes (%) (Auto) 7 % (0-9) Eosinophils (%) (Auto) 3 % (0-3) Basophils (%) (Auto) 1 % (0-3) Neutrophils # (Auto) 5.9 x10^3uL (1.8-7.7) Lymphocytes # (Auto) 1.6 x10^3/uL (1.0-4.8) Monocytes # (Auto) 0.6 x10^3/uL (0.0-1.1) Eosinophils # (Auto) 0.2 x10^3/uL (0.0-0.7) Basophils # (Auto) 0.0 x10^3/uL (0.0-0.2) Assessment and Plan Assessmemt and Plan Problems Medical Problems: (1) Acute cholecystitis Status: Acute Comment Review of Relevant I have reviewed the following items estela (where applicable) has been applied. Labs Laboratory Tests Test 12/03/17 05:12 12/03/17 09:10 Prothrombin Time 14.4 SEC (11.7-14.0) Prothromb Time International Ratio 1.2 (0.8-1.1) Sodium Level 139 mmol/L (136-145) Potassium Level 3.6 mmol/L (3.5-5.1) Chloride Level 102 mmol/L (98-107) Carbon Dioxide Level 29 mmol/L (21-32) Anion Gap 8 (6-14) Blood Urea Nitrogen 7 mg/dL (7-20) Creatinine 0.7 mg/dL (0.6-1.0) Estimated GFR (Cockcroft-Gault) 98.9 BUN/Creatinine Ratio 10 (6-20) Glucose Level 73 mg/dL (70-99) Calcium Level 8.5 mg/dL (8.5-10.1) Total Bilirubin 0.6 mg/dL (0.2-1.0) Aspartate Amino Transf (AST/SGOT) 18 U/L (15-37) Alanine Aminotransferase (ALT/SGPT) 22 U/L (14-59) Alkaline Phosphatase 97 U/L (46-116) Total Protein 6.8 g/dL (6.4-8.2) Albumin 2.5 g/dL (3.4-5.0) Albumin/Globulin Ratio 0.6 (1.0-1.7) White Blood Count 8.4 x10^3/uL (4.0-11.0) Red Blood Count 4.12 x10^6/uL (3.50-5.40) Hemoglobin 13.0 g/dL (12.0-15.5) Hematocrit 37.6 % (36.0-47.0) Mean Corpuscular Volume 91 fL (79-100) Mean Corpuscular Hemoglobin 32 pg (25-35) Mean Corpuscular Hemoglobin Concent 35 g/dL (31-37) Red Cell Distribution Width 12.8 % (11.5-14.5) Platelet Count 244 x10^3/uL (140-400) Neutrophils (%) (Auto) 70 % (31-73) Lymphocytes (%) (Auto) 19 % (24-48) Monocytes (%) (Auto) 7 % (0-9) Eosinophils (%) (Auto) 3 % (0-3) Basophils (%) (Auto) 1 % (0-3) Neutrophils # (Auto) 5.9 x10^3uL (1.8-7.7) Lymphocytes # (Auto) 1.6 x10^3/uL (1.0-4.8) Monocytes # (Auto) 0.6 x10^3/uL (0.0-1.1) Eosinophils # (Auto) 0.2 x10^3/uL (0.0-0.7) Basophils # (Auto) 0.0 x10^3/uL (0.0-0.2) Laboratory Tests Test 12/03/17 05:12 12/03/17 09:10 Prothrombin Time 14.4 SEC (11.7-14.0) Prothromb Time International Ratio 1.2 (0.8-1.1) Sodium Level 139 mmol/L (136-145) Potassium Level 3.6 mmol/L (3.5-5.1) Chloride Level 102 mmol/L (98-107) Carbon Dioxide Level 29 mmol/L (21-32) Anion Gap 8 (6-14) Blood Urea Nitrogen 7 mg/dL (7-20) Creatinine 0.7 mg/dL (0.6-1.0) Estimated GFR (Cockcroft-Gault) 98.9 BUN/Creatinine Ratio 10 (6-20) Glucose Level 73 mg/dL (70-99) Calcium Level 8.5 mg/dL (8.5-10.1) Total Bilirubin 0.6 mg/dL (0.2-1.0) Aspartate Amino Transf (AST/SGOT) 18 U/L (15-37) Alanine Aminotransferase (ALT/SGPT) 22 U/L (14-59) Alkaline Phosphatase 97 U/L (46-116) Total Protein 6.8 g/dL (6.4-8.2) Albumin 2.5 g/dL (3.4-5.0) Albumin/Globulin Ratio 0.6 (1.0-1.7) White Blood Count 8.4 x10^3/uL (4.0-11.0) Red Blood Count 4.12 x10^6/uL (3.50-5.40) Hemoglobin 13.0 g/dL (12.0-15.5) Hematocrit 37.6 % (36.0-47.0) Mean Corpuscular Volume 91 fL (79-100) Mean Corpuscular Hemoglobin 32 pg (25-35) Mean Corpuscular Hemoglobin Concent 35 g/dL (31-37) Red Cell Distribution Width 12.8 % (11.5-14.5) Platelet Count 244 x10^3/uL (140-400) Neutrophils (%) (Auto) 70 % (31-73) Lymphocytes (%) (Auto) 19 % (24-48) Monocytes (%) (Auto) 7 % (0-9) Eosinophils (%) (Auto) 3 % (0-3) Basophils (%) (Auto) 1 % (0-3) Neutrophils # (Auto) 5.9 x10^3uL (1.8-7.7) Lymphocytes # (Auto) 1.6 x10^3/uL (1.0-4.8) Monocytes # (Auto) 0.6 x10^3/uL (0.0-1.1) Eosinophils # (Auto) 0.2 x10^3/uL (0.0-0.7) Basophils # (Auto) 0.0 x10^3/uL (0.0-0.2) Medications Current Medications Sodium Chloride 1,000 ml @ 1,000 mls/hr 1X ONCE IV Last administered on at 01:31; Start 12/01/17 at 00:30; Stop 12/01/17 at 01:29; Status DC Ketorolac Tromethamine (Toradol 30mg Vial) 30 mg 1X ONCE IV Last administered on 12/01/17at 01:49; Start 12/01/17 at 02:00; Stop 12/01/17 at 02:01; Status DC Iohexol (Omnipaque 300 Mg/ml) 75 ml 1X ONCE IV Last administered on 12/01/17at 02:30; Start 12/01/17 at 03:00; Stop 12/01/17 at 03:01; Status DC Info (CONTRAST GIVEN -- Rx MONITORING) 1 each PRN DAILY PRN MC SEE COMMENTS; Start 12/01/17 at 02:30; Stop 12/03/17 at 02:29; Status DC Piperacillin Sod/ Tazobactam Sod 3.375 gm/Sodium Chloride 50 ml @ 100 mls/hr 1X ONCE IV Last administered on 12/01/17at 05:10; Start 12/01/17 at 05:30; Stop 12/01/17 at 05:59; Status DC Fentanyl Citrate (Fentanyl 2ml Vial) 50 mcg 1X ONCE IV Last administered on at 05:47; Start 12/01/17 at 06:00; Stop 12/01/17 at 06:01; Status DC Ondansetron HCl (Zofran) 4 mg 1X ONCE IV Last administered on 12/01/17at 05:47 ; Start 12/01/17 at 06:00; Stop 12/01/17 at 06:01; Status DC Ondansetron HCl (Zofran) 4 mg PRN Q6HRS PRN IV NAUSEA/VOMITING; Start 12/01/17 at 08:15 Morphine Sulfate (Morphine Sulfate) 4 mg PRN Q2HR PRN IV PAIN MILD Last administered on 12/01/17at 09:22; Start 12/01/17 at 08:15 Sodium Chloride 1,000 ml @ 125 mls/hr Q8H IV Last administered on 12/03/17at 07 :53; Start 12/01/17 at 08:15 Fentanyl Citrate (Fentanyl 2ml Vial) 50 mcg PRN Q4HRS PRN IV PAIN Last administered on 12/01/17at 11:13; Start 12/01/17 at 10:30; Stop 12/01/17 at 12:58 ; Status DC Ondansetron HCl (Zofran) 4 mg PRN Q6HRS PRN IV NAUSEA/VOMITING; Start 12/01/17 at 10:30; Stop 12/01/17 at 10:30; Status DC Piperacillin Sod/ Tazobactam Sod 3.375 gm/Sodium Chloride 50 ml @ 100 mls/hr Q6HRS IV Last administered on 12/03/17at 11:10; Start 12/01/17 at 18:00 Fentanyl Citrate (Fentanyl 2ml Vial) 50 mcg PRN Q2HR PRN IV MODERATE PAIN Last administered on 12/03/17at 10:24; Start 12/01/17 at 13:00 Saliva Substitute (Biotene Moisturizing Mouth) 2 spray PRN Q15MIN PRN PO DRY MOUTH; Start 12/01/17 at 13:45 Fentanyl Citrate (Fentanyl 2ml Vial) 75 mcg PRN Q2HR PRN IV SEVERE PAIN Last administered on 12/03/17at 07:52; Start 12/01/17 at 22:00 Cefazolin Sodium/ Dextrose 50 ml @ 100 mls/hr 1X PERIOP ONCE IV ; Start at 10:30; Stop 12/03/17 at 10:59; Status DC Lactobacillus Rhamnosus (Culturelle) 1 cap BID PO Last administered on at 20:20; Start 12/02/17 at 21:00 Ondansetron HCl (Zofran) 4 mg PRN Q6HRS PRN IV NAUSEA/VOMITING; Start 12/03/17 at 07:00; Stop 12/03/17 at 15:00 Fentanyl Citrate (Fentanyl 2ml Vial) 25 mcg PRN Q5MIN PRN IV MILD PAIN; Start 12/03/17 at 07:00; Stop 12/03/17 at 15:00 Fentanyl Citrate (Fentanyl 2ml Vial) 50 mcg PRN Q5MIN PRN IV MODERATE TO SEVERE PAIN; Start 12/03/17 at 07:00; Stop 12/03/17 at 15:00 Morphine Sulfate (Morphine Sulfate) 1 mg PRN Q10MIN PRN IV SEVERE PAIN; Start 12/03/17 at 07:00; Stop 12/03/17 at 15:00 Ringer's Solution 1,000 ml @ 30 mls/hr Q24H IV Last administered on 12/03/17at 12:43; Start 12/03/17 at 07:00; Stop 12/03/17 at 18:59 Lidocaine HCl (Xylocaine-Mpf 1% 2ml Vial) 2 ml PRN 1X PRN ID IV START; Start at 07:00; Stop 12/03/17 at 15:00 Hydromorphone HCl (Dilaudid) 0.5 mg PRN Q10MIN PRN IV SEV PAIN, Second choice; Start 12/03/17 at 07:00; Stop 12/03/17 at 15:00 Prochlorperazine Edisylate (Compazine) 5 mg PACU PRN PRN IV NAUSEA, MRX1 Last administered on 12/03/17at 12:43; Start 12/03/17 at 07:00; Stop 12/03/17 at 15:00 Bisacodyl (Dulcolax Supp) 10 mg PRN DAILY PRN MS CONSTIPATION; Start 12/02/17 at 14:00 Rocuronium [place] (Zemuron) 100 mg STK-MED ONCE .ROUTE ; Start 12/03/17 at 10: 20; Stop 12/03/17 at 10:21; Status DC Rocuronium [place] (Zemuron) 50 mg STK-MED ONCE .ROUTE ; Start 12/03/17 at 10:20 ; Stop 12/03/17 at 10:21; Status DC Fentanyl Citrate (Fentanyl 2ml Vial) 100 mcg STK-MED ONCE .ROUTE ; Start at 10:21; Stop 12/03/17 at 10:22; Status DC Neostigmine Methylsulfate (Neostigmine Methylsulfate) 5 mg STK-MED ONCE .ROUTE ; Start 12/03/17 at 10:21; Stop 12/03/17 at 10:22; Status DC Glycopyrrolate (Robinul) 1 mg STK-MED ONCE .ROUTE ; Start 12/03/17 at 10:21; Stop 12/03/17 at 10:22; Status DC Midazolam HCl (Versed) 2 mg STK-MED ONCE .ROUTE ; Start 12/03/17 at 10:21; Stop 12/03/17 at 10:22; Status DC Lidocaine HCl (Lidocaine Pf 2% Vial) 5 ml STK-MED ONCE .ROUTE ; Start 12/03/17 at 10:22; Stop 12/03/17 at 10:23; Status DC Ketorolac Tromethamine (Toradol For Or Only) 30 mg STK-MED ONCE INJ ; Start at 10:22; Stop 12/03/17 at 10:23; Status DC Dexamethasone Sodium Phosphate (Decadron) 20 mg STK-MED ONCE .ROUTE ; Start at 10:22; Stop 12/03/17 at 10:23; Status DC Ondansetron HCl (Zofran) 4 mg STK-MED ONCE .ROUTE ; Start 12/03/17 at 10:22; Stop 12/03/17 at 10:23; Status DC Bupivacaine HCl/ Epinephrine Bitart (Marcaine-Epi 0.25%-[id number]) 50 ml STK-MED ONCE .ROUTE Last administered on 12/03/17at 11:27; Start 12/03/17 at 09:34; Stop 12/03/17 at 10:35; Status DC Iohexol (Omnipaque 300 Mg/ml) 100 ml STK-MED ONCE .ROUTE Last administered on at 11:28; Start 12/03/17 at 09:35; Stop 12/03/17 at 10:35; Status DC Cellulose (Surgicel Hemostat 4x8) 1 each STK-MED ONCE .ROUTE ; Start 12/03/17 at 09:35; Stop 12/03/17 at 10:35; Status DC Fentanyl Citrate (Fentanyl 2ml Vial) 100 mcg STK-MED ONCE .ROUTE ; Start at 11:31; Stop 12/03/17 at 11:32; Status DC Rocuronium [place] (Zemuron) 50 mg STK-MED ONCE .ROUTE ; Start 12/03/17 at 11:43 ; Stop 12/03/17 at 11:44; Status DC Ketorolac Tromethamine (Toradol 15mg Vial) 15 mg Q6HRS IV ; Start 12/03/17 at 13 :00; Stop 12/04/17 at 12:59 Oxycodone/ Acetaminophen (Percocet 5/325) 1 tab PRN Q4HRS PRN PO PAIN; Start at 12:30 Oxycodone/ Acetaminophen (Percocet 5/325) 2 tab PRN Q4HRS PRN PO PAIN; Start at 12:30 Vitals/I & O Vital Sign - Last 24 Hours 12/02/17 12/02/17 12/02/17 12/02/17 14:25 15:00 17:37 19:00 Temp 98.8 98.5 98.8 98.5 Pulse 60 65 Resp 16 17 16 18 B/P (MAP) 141/88 (105) 144/84 (104) Pulse Ox 98 95 98 97 O2 Delivery Room Air Room Air Room Air 12/02/17 12/02/17 12/02/17 12/02/17 20:00 20:21 22:52 23:00 Temp 97.6 97.6 Pulse 59 Resp 18 B/P (MAP) 133/74 (93) Pulse Ox 98 O2 Delivery Room Air Room Air Room Air Room Air 12/03/17 12/03/17 12/03/17 12/03/17 01:09 03:00 03:46 05:44 Temp 98.2 98.2 Pulse 57 Resp 18 B/P (MAP) 112/64 (80) Pulse Ox 93 O2 Delivery Room Air Room Air Room Air Room Air 12/03/17 12/03/17 12/03/17 12/03/17 07:00 07:52 08:08 08:22 Temp 98.2 98.2 Pulse 55 Resp 18 20 20 B/P (MAP) 148/65 (92) Pulse Ox 94 93 93 O2 Delivery Room Air Room Air Room Air Room Air 12/03/17 12/03/17 12/03/17 12/03/17 10:07 10:14 10:24 10:40 Temp 97 97 97.0 97.0 Pulse 55 55 Resp 16 16 16 B/P (MAP) 121/73 Pulse Ox 96 96 96 96 O2 Delivery Room Air Room Air Room Air Intake and Output 12/02/17 12/02/17 12/03/17 15:00 23:00 07:00 Intake Total 0 ml Balance 0 ml GRADY SIEGEL MD Dec 03, 2017 12:46
[2017-12-03] MEDS: KETOROLAC 15 MG/ML VIAL. IV SCH ×2 (13:00→17:54)
[2017-12-03] MEDS: oxyCODONE/APAP 5/325 1 TAB TABLET PO PRN (20:02)
[2017-12-04] MEDS: KETOROLAC 15 MG/ML VIAL. IV SCH ×3 (00:03→12:14)
[2017-12-04 03:00] VITALS: BP 96/48
[2017-12-04] MEDS: oxyCODONE/APAP 5/325 1 TAB TABLET PO PRN ×3 (03:54→17:53)
[2017-12-04] MEDS: IV NORMAL SALINE 1000ML BAG 1,000 ML IV SCH ×2 (04:29→15:50)
[2017-12-04] MEDS: PIPERACILLIN/TAZOBACTAM 3.375 GM in IV NORMAL SALINE 50ML 50 ML IV SCH ×3 (05:42→18:00)
[2017-12-04 07:00] VITALS: BP 90/65
[2017-12-04] MEDS: LACTOBACILLUS RHAMNOSUS GG 1 CAPSULE. PO SCH (09:02)
[2017-12-04 09:05] LABS: HEMATOCRIT 36.8 % (36.0-47.0); HEMOGLOBIN 12.7 g/dL (12.0-15.5); RED BLOOD COUNT 4.01 x10^6/uL (3.50-5.40); RED CELL DISTRIBUTION WIDTH 12.9 % (11.5-14.5); WHITE BLOOD COUNT 12.3 x10^3/uL (4.0-11.0)
[2017-12-04 09:20] LABS: ALBUMIN 2.5 g/dL (3.4-5.0); ALBUMIN/GLOBULIN RATIO 0.6 (1.0-1.7); CALCIUM 8.3 mg/dL (8.5-10.1); CREATININE 0.8 mg/dL (0.6-1.0); GFR 84.8; POTASSIUM 3.6 mmol/L (3.5-5.1); TOTAL BILIRUBIN 0.3 mg/dL (0.2-1.0); TOTAL PROTEIN 6.8 g/dL (6.4-8.2)
--- NOTE | 2017-12-04 09:33 | PDOC ---
PROGRESS NOTES Chief Complaint Chief Complaint pain better, near resolved Vitals Vitals Vital Signs Date Time Temp Pulse Resp B/P (MAP) Pulse Ox O2 Delivery O2 Flow Rate FiO2 12/04/17 09:02 95 Room Air 12/04/17 07:00 98.2 55 18 90/65 (73) 98.2 12/03/17 14:00 2.0 Physical Exam Physical Exam seen examined bedside lungs: clear cvs:s1s2 regular abd: soft, bs active ext: no edema neuro: alert and conversational neck: supple skin:warm and dry General: Alert, Oriented X3, Cooperative, mild distress Heart: Regular rate, Normal S1, Normal S2, No murmurs Abdomen: Normal bowel sounds, Soft, Other (tender to palpation right upper quadrant) Extremities: No cyanosis, No edema, Normal pulses Skin: No rashes, No significant lesion Labs LABS Laboratory Tests Test 12/04/17 08:50 White Blood Count 12.3 x10^3/uL (4.0-11.0) Red Blood Count 4.01 x10^6/uL (3.50-5.40) Hemoglobin 12.7 g/dL (12.0-15.5) Hematocrit 36.8 % (36.0-47.0) Mean Corpuscular Volume 92 fL (79-100) Mean Corpuscular Hemoglobin 32 pg (25-35) Mean Corpuscular Hemoglobin Concent 34 g/dL (31-37) Red Cell Distribution Width 12.9 % (11.5-14.5) Platelet Count 305 x10^3/uL (140-400) Sodium Level 140 mmol/L (136-145) Potassium Level 3.6 mmol/L (3.5-5.1) Chloride Level 103 mmol/L (98-107) Carbon Dioxide Level 31 mmol/L (21-32) Anion Gap 6 (6-14) Blood Urea Nitrogen 10 mg/dL (7-20) Creatinine 0.8 mg/dL (0.6-1.0) Estimated GFR (Cockcroft-Gault) 84.8 BUN/Creatinine Ratio 13 (6-20) Glucose Level 105 mg/dL (70-99) Calcium Level 8.3 mg/dL (8.5-10.1) Total Bilirubin 0.3 mg/dL (0.2-1.0) Aspartate Amino Transf (AST/SGOT) 29 U/L (15-37) Alanine Aminotransferase (ALT/SGPT) 32 U/L (14-59) Alkaline Phosphatase 111 U/L (46-116) Total Protein 6.8 g/dL (6.4-8.2) Albumin 2.5 g/dL (3.4-5.0) Albumin/Globulin Ratio 0.6 (1.0-1.7) Assessment and Plan Assessmemt and Plan Problems Medical Problems: 1. acute cholecystitis, s/p cholecystectomy plan: disposition follow surgery follow pcp patient educated Comment Review of Relevant I have reviewed the following items estela (where applicable) has been applied. Labs Laboratory Tests Test 12/03/17 05:12 12/03/17 09:10 12/04/17 08:50 Prothrombin Time 14.4 SEC (11.7-14.0) Prothromb Time International Ratio 1.2 (0.8-1.1) Sodium Level 139 mmol/L (136-145) 140 mmol/L (136-145) Potassium Level 3.6 mmol/L (3.5-5.1) 3.6 mmol/L (3.5-5.1) Chloride Level 102 mmol/L (98-107) 103 mmol/L (98-107) Carbon Dioxide Level 29 mmol/L (21-32) 31 mmol/L (21-32) Anion Gap 8 (6-14) 6 (6-14) Blood Urea Nitrogen 7 mg/dL (7-20) 10 mg/dL (7-20) Creatinine 0.7 mg/dL (0.6-1.0) 0.8 mg/dL (0.6-1.0) Estimated GFR (Cockcroft-Gault) 98.9 84.8 BUN/Creatinine Ratio 10 (6-20) 13 (6-20) Glucose Level 73 mg/dL (70-99) 105 mg/dL (70-99) Calcium Level 8.5 mg/dL (8.5-10.1) 8.3 mg/dL (8.5-10.1) Total Bilirubin 0.6 mg/dL (0.2-1.0) 0.3 mg/dL (0.2-1.0) Aspartate Amino Transf (AST/SGOT) 18 U/L (15-37) 29 U/L (15-37) Alanine Aminotransferase (ALT/SGPT) 22 U/L (14-59) 32 U/L (14-59) Alkaline Phosphatase 97 U/L (46-116) 111 U/L (46-116) Total Protein 6.8 g/dL (6.4-8.2) 6.8 g/dL (6.4-8.2) Albumin 2.5 g/dL (3.4-5.0) 2.5 g/dL (3.4-5.0) Albumin/Globulin Ratio 0.6 (1.0-1.7) 0.6 (1.0-1.7) White Blood Count 8.4 x10^3/uL (4.0-11.0) 12.3 x10^3/uL (4.0-11.0) Red Blood Count 4.12 x10^6/uL (3.50-5.40) 4.01 x10^6/uL (3.50-5.40) Hemoglobin 13.0 g/dL (12.0-15.5) 12.7 g/dL (12.0-15.5) Hematocrit 37.6 % (36.0-47.0) 36.8 % (36.0-47.0) Mean Corpuscular Volume 91 fL (79-100) 92 fL (79-100) Mean Corpuscular Hemoglobin 32 pg (25-35) 32 pg (25-35) Mean Corpuscular Hemoglobin Concent 35 g/dL (31-37) 34 g/dL (31-37) Red Cell Distribution Width 12.8 % (11.5-14.5) 12.9 % (11.5-14.5) Platelet Count 244 x10^3/uL (140-400) 305 x10^3/uL (140-400) Neutrophils (%) (Auto) 70 % (31-73) Lymphocytes (%) (Auto) 19 % (24-48) Monocytes (%) (Auto) 7 % (0-9) Eosinophils (%) (Auto) 3 % (0-3) Basophils (%) (Auto) 1 % (0-3) Neutrophils # (Auto) 5.9 x10^3uL (1.8-7.7) Lymphocytes # (Auto) 1.6 x10^3/uL (1.0-4.8) Monocytes # (Auto) 0.6 x10^3/uL (0.0-1.1) Eosinophils # (Auto) 0.2 x10^3/uL (0.0-0.7) Basophils # (Auto) 0.0 x10^3/uL (0.0-0.2) Laboratory Tests Test 12/04/17 08:50 White Blood Count 12.3 x10^3/uL (4.0-11.0) Red Blood Count 4.01 x10^6/uL (3.50-5.40) Hemoglobin 12.7 g/dL (12.0-15.5) Hematocrit 36.8 % (36.0-47.0) Mean Corpuscular Volume 92 fL (79-100) Mean Corpuscular Hemoglobin 32 pg (25-35) Mean Corpuscular Hemoglobin Concent 34 g/dL (31-37) Red Cell Distribution Width 12.9 % (11.5-14.5) Platelet Count 305 x10^3/uL (140-400) Sodium Level 140 mmol/L (136-145) Potassium Level 3.6 mmol/L (3.5-5.1) Chloride Level 103 mmol/L (98-107) Carbon Dioxide Level 31 mmol/L (21-32) Anion Gap 6 (6-14) Blood Urea Nitrogen 10 mg/dL (7-20) Creatinine 0.8 mg/dL (0.6-1.0) Estimated GFR (Cockcroft-Gault) 84.8 BUN/Creatinine Ratio 13 (6-20) Glucose Level 105 mg/dL (70-99) Calcium Level 8.3 mg/dL (8.5-10.1) Total Bilirubin 0.3 mg/dL (0.2-1.0) Aspartate Amino Transf (AST/SGOT) 29 U/L (15-37) Alanine Aminotransferase (ALT/SGPT) 32 U/L (14-59) Alkaline Phosphatase 111 U/L (46-116) Total Protein 6.8 g/dL (6.4-8.2) Albumin 2.5 g/dL (3.4-5.0) Albumin/Globulin Ratio 0.6 (1.0-1.7) Medications Current Medications Sodium Chloride 1,000 ml @ 1,000 mls/hr 1X ONCE IV Last administered on at 01:31; Start 12/01/17 at 00:30; Stop 12/01/17 at 01:29; Status DC Ketorolac Tromethamine (Toradol 30mg Vial) 30 mg 1X ONCE IV Last administered on 12/01/17at 01:49; Start 12/01/17 at 02:00; Stop 12/01/17 at 02:01; Status DC Iohexol (Omnipaque 300 Mg/ml) 75 ml 1X ONCE IV Last administered on 12/01/17at 02:30; Start 12/01/17 at 03:00; Stop 12/01/17 at 03:01; Status DC Info (CONTRAST GIVEN -- Rx MONITORING) 1 each PRN DAILY PRN MC SEE COMMENTS; Start 12/01/17 at 02:30; Stop 12/03/17 at 02:29; Status DC Piperacillin Sod/ Tazobactam Sod 3.375 gm/Sodium Chloride 50 ml @ 100 mls/hr 1X ONCE IV Last administered on 12/01/17at 05:10; Start 12/01/17 at 05:30; Stop 12/01/17 at 05:59; Status DC Fentanyl Citrate (Fentanyl 2ml Vial) 50 mcg 1X ONCE IV Last administered on at 05:47; Start 12/01/17 at 06:00; Stop 12/01/17 at 06:01; Status DC Ondansetron HCl (Zofran) 4 mg 1X ONCE IV Last administered on 12/01/17at 05:47 ; Start 12/01/17 at 06:00; Stop 12/01/17 at 06:01; Status DC Ondansetron HCl (Zofran) 4 mg PRN Q6HRS PRN IV NAUSEA/VOMITING Last administered on 12/03/17at 19:59; Start 12/01/17 at 08:15 Morphine Sulfate (Morphine Sulfate) 4 mg PRN Q2HR PRN IV PAIN MILD Last administered on 12/01/17at 09:22; Start 12/01/17 at 08:15 Sodium Chloride 1,000 ml @ 125 mls/hr Q8H IV Last administered on 12/04/17at 04 :29; Start 12/01/17 at 08:15 Fentanyl Citrate (Fentanyl 2ml Vial) 50 mcg PRN Q4HRS PRN IV PAIN Last administered on 12/01/17at 11:13; Start 12/01/17 at 10:30; Stop 12/01/17 at 12:58 ; Status DC Ondansetron HCl (Zofran) 4 mg PRN Q6HRS PRN IV NAUSEA/VOMITING; Start 12/01/17 at 10:30; Stop 12/01/17 at 10:30; Status DC Piperacillin Sod/ Tazobactam Sod 3.375 gm/Sodium Chloride 50 ml @ 100 mls/hr Q6HRS IV Last administered on 12/04/17at 05:42; Start 12/01/17 at 18:00 Fentanyl Citrate (Fentanyl 2ml Vial) 50 mcg PRN Q2HR PRN IV MODERATE PAIN Last administered on 12/03/17at 10:24; Start 12/01/17 at 13:00 Saliva Substitute (Biotene Moisturizing Mouth) 2 spray PRN Q15MIN PRN PO DRY MOUTH; Start 12/01/17 at 13:45 Fentanyl Citrate (Fentanyl 2ml Vial) 75 mcg PRN Q2HR PRN IV SEVERE PAIN Last administered on 12/03/17at 07:52; Start 12/01/17 at 22:00 Cefazolin Sodium/ Dextrose 50 ml @ 100 mls/hr 1X PERIOP ONCE IV ; Start at 10:30; Stop 12/03/17 at 10:59; Status DC Lactobacillus Rhamnosus (Culturelle) 1 cap BID PO Last administered on at 09:02; Start 12/02/17 at 21:00 Ondansetron HCl (Zofran) 4 mg PRN Q6HRS PRN IV NAUSEA/VOMITING; Start 12/03/17 at 07:00; Stop 12/03/17 at 15:00; Status DC Fentanyl Citrate (Fentanyl 2ml Vial) 25 mcg PRN Q5MIN PRN IV MILD PAIN; Start 12/03/17 at 07:00; Stop 12/03/17 at 15:00; Status DC Fentanyl Citrate (Fentanyl 2ml Vial) 50 mcg PRN Q5MIN PRN IV MODERATE TO SEVERE PAIN Last administered on 12/03/17at 13:26; Start 12/03/17 at 07:00; Stop 12/03/17 at 15:00; Status DC Morphine Sulfate (Morphine Sulfate) 1 mg PRN Q10MIN PRN IV SEVERE PAIN; Start 12/03/17 at 07:00; Stop 12/03/17 at 15:00; Status DC Ringer's Solution 1,000 ml @ 30 mls/hr Q24H IV Last administered on 12/03/17at 12:43; Start 12/03/17 at 07:00; Stop 12/03/17 at 18:59; Status DC Lidocaine HCl (Xylocaine-Mpf 1% 2ml Vial) 2 ml PRN 1X PRN ID IV START; Start at 07:00; Stop 12/03/17 at 15:00; Status DC Hydromorphone HCl (Dilaudid) 0.5 mg PRN Q10MIN PRN IV SEV PAIN, Second choice; Start 12/03/17 at 07:00; Stop 12/03/17 at 15:00; Status DC Prochlorperazine Edisylate (Compazine) 5 mg PACU PRN PRN IV NAUSEA, MRX1 Last administered on 12/03/17at 13:26; Start 12/03/17 at 07:00; Stop 12/03/17 at 15:00 ; Status DC Bisacodyl (Dulcolax Supp) 10 mg PRN DAILY PRN [place] CONSTIPATION; Start 12/02/17 at 14:00 Rocuronium [place] (Zemuron) 100 mg STK-MED ONCE .ROUTE ; Start 12/03/17 at 10: 20; Stop 12/03/17 at 10:21; Status DC Rocuronium [place] (Zemuron) 50 mg STK-MED ONCE .ROUTE ; Start 12/03/17 at 10:20 ; Stop 12/03/17 at 10:21; Status DC Fentanyl Citrate (Fentanyl 2ml Vial) 100 mcg STK-MED ONCE .ROUTE ; Start at 10:21; Stop 12/03/17 at 10:22; Status DC Neostigmine Methylsulfate (Neostigmine Methylsulfate) 5 mg STK-MED ONCE .ROUTE ; Start 12/03/17 at 10:21; Stop 12/03/17 at 10:22; Status DC Glycopyrrolate (Robinul) 1 mg STK-MED ONCE .ROUTE ; Start 12/03/17 at 10:21; Stop 12/03/17 at 10:22; Status DC Midazolam HCl (Versed) 2 mg STK-MED ONCE .ROUTE ; Start 12/03/17 at 10:21; Stop 12/03/17 at 10:22; Status DC Lidocaine HCl (Lidocaine Pf 2% Vial) 5 ml STK-MED ONCE .ROUTE ; Start 12/03/17 at 10:22; Stop 12/03/17 at 10:23; Status DC Ketorolac Tromethamine (Toradol For Or Only) 30 mg STK-MED ONCE INJ ; Start at 10:22; Stop 12/03/17 at 10:23; Status DC Dexamethasone Sodium Phosphate (Decadron) 20 mg STK-MED ONCE .ROUTE ; Start at 10:22; Stop 12/03/17 at 10:23; Status DC Ondansetron HCl (Zofran) 4 mg STK-MED ONCE .ROUTE ; Start 12/03/17 at 10:22; Stop 12/03/17 at 10:23; Status DC Bupivacaine HCl/ Epinephrine Bitart (Marcaine-Epi 0.25%-1:214431) 50 ml STK-MED ONCE .ROUTE Last administered on 12/03/17at 11:27; Start 12/03/17 at 09:34; Stop 12/03/17 at 10:35; Status DC Iohexol (Omnipaque 300 Mg/ml) 100 ml STK-MED ONCE .ROUTE Last administered on at 11:28; Start 12/03/17 at 09:35; Stop 12/03/17 at 10:35; Status DC Cellulose (Surgicel Hemostat 4x8) 1 each STK-MED ONCE .ROUTE ; Start 12/03/17 at 09:35; Stop 12/03/17 at 10:35; Status DC Fentanyl Citrate (Fentanyl 2ml Vial) 100 mcg STK-MED ONCE .ROUTE ; Start at 11:31; Stop 12/03/17 at 11:32; Status DC Rocuronium [place] (Zemuron) 50 mg STK-MED ONCE .ROUTE ; Start 12/03/17 at 11:43 ; Stop 12/03/17 at 11:44; Status DC Ketorolac Tromethamine (Toradol 15mg Vial) 15 mg Q6HRS IV Last administered on 12/04/17at 05:42; Start 12/03/17 at 13:00; Stop 12/04/17 at 12:59 Oxycodone/ Acetaminophen (Percocet 5/325) 1 tab PRN Q4HRS PRN PO PAIN; Start at 12:30 Oxycodone/ Acetaminophen (Percocet 5/325) 2 tab PRN Q4HRS PRN PO PAIN Last administered on 12/04/17at 09:02; Start 12/03/17 at 12:30 Vitals/I & O Vital Sign - Last 24 Hours 12/03/17 12/03/17 12/03/17 12/03/17 10:07 10:14 10:24 10:40 Temp 97 97 97.0 97.0 Pulse 55 55 Resp 16 16 16 B/P (MAP) 121/73 Pulse Ox 96 96 96 96 O2 Delivery Room Air Room Air Room Air 12/03/17 12/03/17 12/03/17 12/03/17 12:25 12:25 12:28 12:40 Temp 97.7 97.7 Pulse 88 47 54 Resp 20 20 20 B/P (MAP) 118/47 121/80 117/46 Pulse Ox 92 94 94 O2 Delivery Simple Mask Mask Nasal Cannula Simple Mask O2 Flow Rate 10 10 2 10 12/03/17 12/03/17 12/03/17 12/03/17 12:49 12:55 13:10 13:25 Temp 97.0 97.0 Pulse 48 48 46 Resp 20 20 20 18 B/P (MAP) 106/68 129/79 122/78 Pulse Ox 96 94 94 95 O2 Delivery Room Air Nasal Cannula Nasal Cannula Nasal Cannula O2 Flow Rate 2 2 2 12/03/17 12/03/17 12/03/17 12/03/17 13:26 13:38 14:00 14:00 Temp 98.3 98.3 Pulse 52 Resp 20 18 B/P (MAP) 134/78 (96) Pulse Ox 99 99 92 O2 Delivery Nasal Cannula Nasal Cannula Nasal Cannula Room Air O2 Flow Rate 2.0 2 2.0 12/03/17 12/03/17 12/03/17 12/03/17 14:15 14:30 14:45 15:00 Temp 98.3 98.3 98.3 98.3 98.3 98.3 98.3 98.3 Pulse 66 51 55 52 Resp 18 18 18 B/P (MAP) 141/82 (101) 139/79 (99) 131/76 (94) 133/77 (95) Pulse Ox 90 90 89 91 O2 Delivery Room Air Room Air Room Air Room Air 12/03/17 12/03/17 12/03/17 12/03/17 15:30 16:00 19:00 20:00 Temp 98.3 98.3 97.4 98.3 98.3 97.4 Pulse 50 50 62 Resp 18 18 B/P (MAP) 123/71 (88) 117/70 (86) 141/81 (101) Pulse Ox 92 92 95 O2 Delivery Room Air Room Air Room Air Room Air 12/03/17 12/03/17 12/04/17 12/04/17 20:02 23:00 03:00 03:54 Temp 97.9 97.7 97.9 97.7 Pulse 53 57 Resp 18 18 B/P (MAP) 96/60 (72) 96/48 (64) Pulse Ox 94 94 O2 Delivery Room Air Room Air Room Air Room Air 12/04/17 12/04/17 12/04/17 05:00 07:00 09:02 Temp 98.2 98.2 Pulse 55 Resp 18 B/P (MAP) 90/65 (73) Pulse Ox 95 95 O2 Delivery Room Air Room Air Room Air Intake and Output 12/03/17 12/03/17 12/04/17 15:00 23:00 07:00 Intake Total 1750 ml 1050 ml 1290 ml Output Total 40 ml Balance 1710 ml 1050 ml 1290 ml SHAKILA NATH MD Dec 04, 2017 09:33
--- NOTE | 2017-12-04 09:35 | DISCH ---
DISCHARGE INSTRUCTIONS Condition on Discharge Condition on Discharge: Stable Activity After Discharge Activity Instructions for Disc: Other, see below (per surgery) Diet after Discharge Diet after Discharge: Cardiac Wound Incision Care Wound/Incision Care: Other, see below (per surgery) Contacting the after DC Call your doctor for: Concerns you may have SHAKILA NATH MD Dec 04, 2017 09:35
--- NOTE | 2017-12-04 09:42 | PDOC3 ---
Discharge Summary Visit Information Final Diagnosis Problems Medical Problems: (1) Acute cholecystitis Status: Acute Brief Hospital Course Allergies Allergies Coded Allergies Type Severity Reaction Last Updated Verified No Known Drug Allergies 07/18/13 No Vital Signs Vital Signs Date Time Temp Pulse Resp B/P (MAP) Pulse Ox O2 Delivery O2 Flow Rate FiO2 12/04/17 09:02 95 Room Air 12/04/17 07:00 98.2 55 18 90/65 (73) 98.2 12/03/17 14:00 2.0 Lab Results Laboratory Tests Test 12/03/17 05:12 12/03/17 09:10 12/04/17 08:50 Prothrombin Time 14.4 SEC (11.7-14.0) Prothromb Time International Ratio 1.2 (0.8-1.1) Sodium Level 139 mmol/L (136-145) 140 mmol/L (136-145) Potassium Level 3.6 mmol/L (3.5-5.1) 3.6 mmol/L (3.5-5.1) Chloride Level 102 mmol/L (98-107) 103 mmol/L (98-107) Carbon Dioxide Level 29 mmol/L (21-32) 31 mmol/L (21-32) Anion Gap 8 (6-14) 6 (6-14) Blood Urea Nitrogen 7 mg/dL (7-20) 10 mg/dL (7-20) Creatinine 0.7 mg/dL (0.6-1.0) 0.8 mg/dL (0.6-1.0) Estimated GFR (Cockcroft-Gault) 98.9 84.8 BUN/Creatinine Ratio 10 (6-20) 13 (6-20) Glucose Level 73 mg/dL (70-99) 105 mg/dL (70-99) Calcium Level 8.5 mg/dL (8.5-10.1) 8.3 mg/dL (8.5-10.1) Total Bilirubin 0.6 mg/dL (0.2-1.0) 0.3 mg/dL (0.2-1.0) Aspartate Amino Transf (AST/SGOT) 18 U/L (15-37) 29 U/L (15-37) Alanine Aminotransferase (ALT/SGPT) 22 U/L (14-59) 32 U/L (14-59) Alkaline Phosphatase 97 U/L (46-116) 111 U/L (46-116) Total Protein 6.8 g/dL (6.4-8.2) 6.8 g/dL (6.4-8.2) Albumin 2.5 g/dL (3.4-5.0) 2.5 g/dL (3.4-5.0) Albumin/Globulin Ratio 0.6 (1.0-1.7) 0.6 (1.0-1.7) White Blood Count 8.4 x10^3/uL (4.0-11.0) 12.3 x10^3/uL (4.0-11.0) Red Blood Count 4.12 x10^6/uL (3.50-5.40) 4.01 x10^6/uL (3.50-5.40) Hemoglobin 13.0 g/dL (12.0-15.5) 12.7 g/dL (12.0-15.5) Hematocrit 37.6 % (36.0-47.0) 36.8 % (36.0-47.0) Mean Corpuscular Volume 91 fL (79-100) 92 fL (79-100) Mean Corpuscular Hemoglobin 32 pg (25-35) 32 pg (25-35) Mean Corpuscular Hemoglobin Concent 35 g/dL (31-37) 34 g/dL (31-37) Red Cell Distribution Width 12.8 % (11.5-14.5) 12.9 % (11.5-14.5) Platelet Count 244 x10^3/uL (140-400) 305 x10^3/uL (140-400) Neutrophils (%) (Auto) 70 % (31-73) Lymphocytes (%) (Auto) 19 % (24-48) Monocytes (%) (Auto) 7 % (0-9) Eosinophils (%) (Auto) 3 % (0-3) Basophils (%) (Auto) 1 % (0-3) Neutrophils # (Auto) 5.9 x10^3uL (1.8-7.7) Lymphocytes # (Auto) 1.6 x10^3/uL (1.0-4.8) Monocytes # (Auto) 0.6 x10^3/uL (0.0-1.1) Eosinophils # (Auto) 0.2 x10^3/uL (0.0-0.7) Basophils # (Auto) 0.0 x10^3/uL (0.0-0.2) Laboratory Tests Test 12/04/17 08:50 White Blood Count 12.3 x10^3/uL (4.0-11.0) Red Blood Count 4.01 x10^6/uL (3.50-5.40) Hemoglobin 12.7 g/dL (12.0-15.5) Hematocrit 36.8 % (36.0-47.0) Mean Corpuscular Volume 92 fL (79-100) Mean Corpuscular Hemoglobin 32 pg (25-35) Mean Corpuscular Hemoglobin Concent 34 g/dL (31-37) Red Cell Distribution Width 12.9 % (11.5-14.5) Platelet Count 305 x10^3/uL (140-400) Sodium Level 140 mmol/L (136-145) Potassium Level 3.6 mmol/L (3.5-5.1) Chloride Level 103 mmol/L (98-107) Carbon Dioxide Level 31 mmol/L (21-32) Anion Gap 6 (6-14) Blood Urea Nitrogen 10 mg/dL (7-20) Creatinine 0.8 mg/dL (0.6-1.0) Estimated GFR (Cockcroft-Gault) 84.8 BUN/Creatinine Ratio 13 (6-20) Glucose Level 105 mg/dL (70-99) Calcium Level 8.3 mg/dL (8.5-10.1) Total Bilirubin 0.3 mg/dL (0.2-1.0) Aspartate Amino Transf (AST/SGOT) 29 U/L (15-37) Alanine Aminotransferase (ALT/SGPT) 32 U/L (14-59) Alkaline Phosphatase 111 U/L (46-116) Total Protein 6.8 g/dL (6.4-8.2) Albumin 2.5 g/dL (3.4-5.0) Albumin/Globulin Ratio 0.6 (1.0-1.7) Brief Hospital Course 27 y.o lady presented with acute cholecystitis, admitted, evaluated, s/p cholecystectomy, planned to be discharged , stable at discharge, discharge time> 32 min, follow up pcp and surgery Discharge Information Follow Up: Weeks Disposition/Orders: D/C to Home SHAKILA NATH MD Dec 04, 2017 09:42
[2017-12-04 11:00] VITALS: BP 110/68
--- NOTE | 2017-12-04 13:12 | PDOC ---
Subjective: Subjective: Feels great, glad to be going home later. Objective: Vital Signs: Vital Signs Date Time Temp Pulse Resp B/P (MAP) Pulse Ox O2 Delivery O2 Flow Rate FiO2 12/04/17 11:00 97.2 58 18 110/68 (82) 95 Room Air 97.2 12/03/17 14:00 2.0 PE: GEN: NAD LUNGS: CTAB HEART: RRR ABD: soft NEURO/PSYCH: A & O 3 A/P: S/p cholecystectomy H/o Hep C - PCR quant not detected -- DC per surgery/primary. CORDELIA THEODORE Dec 04, 2017 13:12
--- NOTE | 2017-12-04 13:41 | PDOC ---
[employer] 12/04/17 1341: SURGICAL PROGRESS NOTE Subjective tolerating diet pain managed no emesis Vital Signs Vital Signs Date Time Temp Pulse Resp B/P (MAP) Pulse Ox O2 Delivery O2 Flow Rate FiO2 12/04/17 11:00 97.2 58 18 110/68 (82) 95 Room Air 97.2 12/03/17 14:00 2.0 I&O Intake and Output 12/04/17 07:00 Intake Total 4090 ml Output Total 40 ml Balance 4050 ml Intake Oral 240 ml IV Total 3850 ml Output Estimated Blood Loss 40 ml # Voids 6 General: Alert, Oriented X3, Cooperative, No acute distress Abdomen: Soft, Other (ND, lap dressings dry) Labs Laboratory Tests Test 12/03/17 05:12 12/03/17 09:10 12/04/17 08:50 Prothrombin Time 14.4 SEC (11.7-14.0) Prothromb Time International Ratio 1.2 (0.8-1.1) Sodium Level 139 mmol/L (136-145) 140 mmol/L (136-145) Potassium Level 3.6 mmol/L (3.5-5.1) 3.6 mmol/L (3.5-5.1) Chloride Level 102 mmol/L (98-107) 103 mmol/L (98-107) Carbon Dioxide Level 29 mmol/L (21-32) 31 mmol/L (21-32) Anion Gap 8 (6-14) 6 (6-14) Blood Urea Nitrogen 7 mg/dL (7-20) 10 mg/dL (7-20) Creatinine 0.7 mg/dL (0.6-1.0) 0.8 mg/dL (0.6-1.0) Estimated GFR (Cockcroft-Gault) 98.9 84.8 BUN/Creatinine Ratio 10 (6-20) 13 (6-20) Glucose Level 73 mg/dL (70-99) 105 mg/dL (70-99) Calcium Level 8.5 mg/dL (8.5-10.1) 8.3 mg/dL (8.5-10.1) Total Bilirubin 0.6 mg/dL (0.2-1.0) 0.3 mg/dL (0.2-1.0) Aspartate Amino Transf (AST/SGOT) 18 U/L (15-37) 29 U/L (15-37) Alanine Aminotransferase (ALT/SGPT) 22 U/L (14-59) 32 U/L (14-59) Alkaline Phosphatase 97 U/L (46-116) 111 U/L (46-116) Total Protein 6.8 g/dL (6.4-8.2) 6.8 g/dL (6.4-8.2) Albumin 2.5 g/dL (3.4-5.0) 2.5 g/dL (3.4-5.0) Albumin/Globulin Ratio 0.6 (1.0-1.7) 0.6 (1.0-1.7) White Blood Count 8.4 x10^3/uL (4.0-11.0) 12.3 x10^3/uL (4.0-11.0) Red Blood Count 4.12 x10^6/uL (3.50-5.40) 4.01 x10^6/uL (3.50-5.40) Hemoglobin 13.0 g/dL (12.0-15.5) 12.7 g/dL (12.0-15.5) Hematocrit 37.6 % (36.0-47.0) 36.8 % (36.0-47.0) Mean Corpuscular Volume 91 fL (79-100) 92 fL (79-100) Mean Corpuscular Hemoglobin 32 pg (25-35) 32 pg (25-35) Mean Corpuscular Hemoglobin Concent 35 g/dL (31-37) 34 g/dL (31-37) Red Cell Distribution Width 12.8 % (11.5-14.5) 12.9 % (11.5-14.5) Platelet Count 244 x10^3/uL (140-400) 305 x10^3/uL (140-400) Neutrophils (%) (Auto) 70 % (31-73) Lymphocytes (%) (Auto) 19 % (24-48) Monocytes (%) (Auto) 7 % (0-9) Eosinophils (%) (Auto) 3 % (0-3) Basophils (%) (Auto) 1 % (0-3) Neutrophils # (Auto) 5.9 x10^3uL (1.8-7.7) Lymphocytes # (Auto) 1.6 x10^3/uL (1.0-4.8) Monocytes # (Auto) 0.6 x10^3/uL (0.0-1.1) Eosinophils # (Auto) 0.2 x10^3/uL (0.0-0.7) Basophils # (Auto) 0.0 x10^3/uL (0.0-0.2) Laboratory Tests Test 12/04/17 08:50 White Blood Count 12.3 x10^3/uL (4.0-11.0) Red Blood Count 4.01 x10^6/uL (3.50-5.40) Hemoglobin 12.7 g/dL (12.0-15.5) Hematocrit 36.8 % (36.0-47.0) Mean Corpuscular Volume 92 fL (79-100) Mean Corpuscular Hemoglobin 32 pg (25-35) Mean Corpuscular Hemoglobin Concent 34 g/dL (31-37) Red Cell Distribution Width 12.9 % (11.5-14.5) Platelet Count 305 x10^3/uL (140-400) Sodium Level 140 mmol/L (136-145) Potassium Level 3.6 mmol/L (3.5-5.1) Chloride Level 103 mmol/L (98-107) Carbon Dioxide Level 31 mmol/L (21-32) Anion Gap 6 (6-14) Blood Urea Nitrogen 10 mg/dL (7-20) Creatinine 0.8 mg/dL (0.6-1.0) Estimated GFR (Cockcroft-Gault) 84.8 BUN/Creatinine Ratio 13 (6-20) Glucose Level 105 mg/dL (70-99) Calcium Level 8.3 mg/dL (8.5-10.1) Total Bilirubin 0.3 mg/dL (0.2-1.0) Aspartate Amino Transf (AST/SGOT) 29 U/L (15-37) Alanine Aminotransferase (ALT/SGPT) 32 U/L (14-59) Alkaline Phosphatase 111 U/L (46-116) Total Protein 6.8 g/dL (6.4-8.2) Albumin 2.5 g/dL (3.4-5.0) Albumin/Globulin Ratio 0.6 (1.0-1.7) Problem List Problems Medical Problems: (1) Acute cholecystitis Status: Acute Assessment/Plan s/p lap joe home FU 2 weeks BONI HOWARD MD 12/04/17 1456: SURGICAL PROGRESS NOTE Assessment/Plan Patient doing much better feels well tolerating regular diet agree with Kailyn assessment and plan for discharge to home FRED GREENE APRN Dec 04, 2017 13:41 BONI HOWARD MD Dec 04, 2017 14:56
[2017-12-04 15:00] VITALS: BP 110/68
--- NOTE | 2017-12-07 14:08 | PATHOLOGY ---
[facility] Accession Number: [id number] . 01 Material submitted: . GALLBLADDER . 01 Clinical history: . Acute cholecystitis . 02 Diagnosis: Gallbladder, laparoscopic cholecystectomy: - Cholelithiasis. - Acute hemorrhagic and chronic cholecystitis with increased eosinophils. 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 P/12/07/2017 . 02 Comment: There is no evidence of malignancy. (JPM:[facility] 12/07/2017) . 02 Electronically signed: . Juan Manuel Prasad MD, Pathologist NPI- [id number] . 01 Gross description: . The specimen is received in formalin, labeled "Mccrary, Krystyna, gallbladder" and consists of an intact, enlarged, purple-pink and dusky gallbladder measuring 10.0 x 5.0 x 3.1 cm. Opening the specimen reveals a pink-dark purple, ulcerated, and trabeculated mucosa with the wall measuring up to 0.9 cm. Multiple green and multifaceted calculi are present measuring up to 1.8 cm. No polyps or masses are identified. Adjacent gallbladder neck is a lymph node candidate measuring 1.3 x 1.0 cm which is trisected to reveal homogeneous pink-laird cut surfaces. Offset [employer] sections are submitted in A1-A3 with the lymph node in A3. (SDY; 12/03/2017) SYU/SYU . 02 Pathologist provided ICD-10: K80.12 . 02 CPT . 809163 Performed at: 01 [facility] [address], [place] [id number] MD Christian Reynolds MD Phone: [phone] Performed at: 02 [facility] [address] [id number] MD Juan Manuel Prasad MD Phone: [phone]
== END 2017-12-04 18:30 | disposition home or self-care (01) | DRG 418 ==
LOC: ER 23:39 → 4 NORTH 12-01 04:10
PROVIDERS: ADMIT Internal Medicine; ATTEND Internal Medicine
PROC: BF141ZZ Fluoroscopy of Gallbladder, Bile Ducts and Pancreatic Ducts using Low Osmolar Contrast (ICD-10-PCS; 2017-12-03)
PROC: 0FT44ZZ Resection of Gallbladder, Percutaneous Endoscopic Approach (ICD-10-PCS; principal; 2017-12-03 11:30)
DX: K80.00 Calculus of gallbladder with acute cholecystitis without obstruction (principal); Z68.41 Body mass index [BMI] 40.0-44.9, adult; E66.9 Obesity, unspecified; F12.90 Cannabis use, unspecified, uncomplicated; Z98.51 Tubal ligation status; B19.20 Unspecified viral hepatitis C without hepatic coma; F17.210 Nicotine dependence, cigarettes, uncomplicated; E28.2 Polycystic ovarian syndrome; R16.0 Hepatomegaly, not elsewhere classified
CPT/HCPCS: 36415; 74177; 76705; 76830; 76856; 80053; 80307; 81001; 81025; 83690; 85007; 85025; 85027; 85610; 86803; 87521; 88304; 96361; 96365; 96375; A7015; G0480; J0690; J0780; J1100; J1885; J2001; J2250; J2270; J2405; J2543; J2710; J3010; J3490; J7030; J7120; Q9967; 99285-25; G0479

== ENCOUNTER 2018-03-22 18:02 | Emergency (ER) | payer SELFPAY ==
[~2018-03-22] VITALS: Ht 165.1 cm; Wt 86.2 kg
[2018-03-22 19:15] VITALS: BP 109/70
--- NOTE | 2018-03-22 20:57 | RAD ---
PQRS Compliance statement: One or more of the following individualized dose reduction techniques were utilized for this examination: 1. Automated exposure control. 2. Adjustment of the mA and/or kV according to patient size. 3. Use of iterative reconstruction technique. Indication:HEADACHE [id number] TECHNIQUE: CT head without IV contrast COMPARISON:None FINDINGS: No pathologic extra-axial or intra-axial fluid collection. The ventricles and basal cisterns are within normal limits. No acute intracranial bleed. No focal loss of sampson-white differentiation. Orbits are within normal limits. No suspicious calvarial lesion. Visualized paranasal sinuses and mastoid air cells are clear. IMPRESSION: No acute intracranial process. Electronically signed by: Bimal Main DO (03/22/2018 8:53 PM) [facility]
[2018-03-22] MEDS ORDERED: SUMAtriptan SUCCINATE 25 MG TABLET PO ONE (21:00)
--- NOTE | 2018-03-22 21:24 | PHYS DOC ---
Past Medical History Past Medical History: No Pertinent History Past Surgical History: No Surgical History Alcohol Use: None Drug Use: Marijuana, Methamphetamine Adult General Chief Complaint Chief Complaint: HEADACHE HPI HPI Patient is a 27 year old female who presents today complaining of sharp and throbbing 8 out of 10 right sided migraine headache that has been going on intermittently for 2 weeks. Patient denies any nausea vomiting or photophobia. She states she would like a CT of her head because her mother of mini strokes. She states she's had similar headaches before but not for this long. She is a smoker. Review of Systems Review of Systems Constitutional: Denies fever or chills [] Eyes: Denies change in visual acuity, redness, or eye pain [] HENT: Denies nasal congestion or sore throat [] Respiratory: Denies cough or shortness of breath [] Cardiovascular: No additional information not addressed in HPI [] GI: Denies abdominal pain, nausea, vomiting, bloody stools or diarrhea [] : Denies dysuria or hematuria [] Musculoskeletal: Denies back pain or joint pain [] Integument: Denies rash or skin lesions [] Neurologic: Reports migraine headache, denies focal weakness or sensory changes [] All other systems were reviewed and found to be within normal limits, except as documented in this note. Current Medications Current Medications Current Medications Medications (Trade) Dose Ordered Sig/Issa Start Time Stop Time Status Last Admin Dose Admin Sumatriptan Succinate (Imitrex) 25 mg 1X ONCE 03/22/18 21:00 03/22/18 21:01 DC 03/22/18 20:39 25 MG Allergies Allergies Allergies Coded Allergies Type Severity Reaction Last Updated Verified No Known Drug Allergies 07/18/13 No Physical Exam Physical Exam Constitutional: Well developed, well nourished, no acute distress, non-toxic appearance. [] HENT: Normocephalic, atraumatic, bilateral external ears normal, oropharynx moist, no oral exudates, nose normal. [] Eyes: PERRLA, EOMI, conjunctiva normal, no discharge. [] Neck: Normal range of motion, no tenderness, supple, no stridor. [] Cardiovascular:Heart rate regular rhythm, no murmur [] Lungs & Thorax: Bilateral breath sounds clear to auscultation [] Abdomen: Bowel sounds normal, soft, no tenderness, no masses, no pulsatile masses. [] Skin: Warm, dry, no erythema, no rash. [] Back: No tenderness, no CVA tenderness. [] Extremities: No tenderness, no cyanosis, no clubbing, ROM intact, no edema. [] Neurologic: Alert and oriented X 3, normal motor function, normal sensory function, no focal deficits noted. Cranial nerves II through XII intact Psychologic: Affect normal, judgement normal, mood normal. [] Current Patient Data Vital Signs Vital Signs Date Time Temp Pulse Resp B/P (MAP) Pulse Ox O2 Delivery O2 Flow Rate FiO2 03/22/18 19:15 98.1 76 16 109/70 (83) 99 Room Air 98.1 Lab Values Laboratory Tests Test 03/22/18 19:59 POC Urine HCG, Qualitative Hcg negative (Negative) EKG EKG [] Radiology/Procedures Radiology/Procedures [] Course & Med Decision Making Course & Med Decision Making Pertinent Labs and Imaging studies reviewed. (See chart for details) This is a 27-year-old female patient presenting to the ED today with a migraine headache intermittently for 2 weeks. She herself requested CT of the head. CT of the head was negative for any acute findings. Patient is a smoker, she was encouraged to consider smoking cessation. Instructed to take [id number] medications for her headache. Follow-up with her own PCP in 1-2 weeks as needed. Dragon Disclaimer Dragon Disclaimer This electronic medical record was generated, in whole or in part, using a voice recognition dictation system. Departure Departure Impression: Primary Impression: Migraine headache Disposition: HOME, SELF-CARE Condition: STABLE Referrals: NO PCP (PCP) Scripts No Active Prescriptions or Reported Meds Problem Qualifiers Primary Impression: Migraine headache Migraine type: without aura Status migrainosus presence: without status migrainosus Intractability: not intractable Qualified Codes: G43.009 - Migraine without aura, not intractable, without status migrainosus TAMI SOTO APRN Mar 22, 2018 21:24
== END 2018-03-22 21:24 | disposition home or self-care (01) ==
LOC: ER 18:02
DX: G43.009 Migraine without aura, not intractable, without status migrainosus (principal); F17.200 Nicotine dependence, unspecified, uncomplicated
CPT/HCPCS: 70450; 81025; 99284

== ENCOUNTER 2019-04-15 16:36 | Emergency (ER) | payer SELFPAY ==
[~2019-04-15] VITALS: Ht 167.6 cm; Wt 136.1 kg
[2019-04-15 16:45] VITALS: BP 138/77
[2019-04-15] MEDS ORDERED: LIDOCAINE 1% PF 2 ML VIAL. INJ ONE (17:15)
[2019-04-15] MEDS ORDERED: CEPH500C PO (18:10)
--- NOTE | 2019-04-15 18:11 | PHYS DOC ---
Past Medical History Past Medical History: No Pertinent History Past Surgical History: No Surgical History Alcohol Use: None Drug Use: Marijuana, Methamphetamine Adult General Chief Complaint Chief Complaint: EYE PROBLEMS HPI HPI Patient is a 28 year old female who presents to the emergency department with complaints of redness, swelling, and pain in her right eyebrow. Patient states that the symptoms started 2 days ago. She noticed a small pustule in her eyebrow that she thought was uses it so she squeezed some pus out of it and progressively symptoms have gotten worse. Patient denies any vision changes, discharge from eyes, injury, blurred vision, or pain in the right eye. She denies any fever. She currently rates her pain a 5 out of 10 on the pain scale, the pain increases if the area is touched. There are no alleviating factors. All other ROS is neg unless otherwise noted in HPI. Review of Systems Review of Systems See Above Current Medications Current Medications Current Medications Medications (Trade) Dose Ordered Sig/Issa Start Time Stop Time Status Last Admin Dose Admin Lidocaine HCl (Xylocaine-Mpf 1% 2ml Vial) 4 ml 1X ONCE 04/15/19 17:15 04/15/19 17:16 DC 04/15/19 17:15 4 ML Allergies Allergies Allergies Coded Allergies Type Severity Reaction Last Updated Verified No Known Drug Allergies 07/18/13 No Physical Exam Physical Exam See Above Constitutional: Well developed, well nourished, no acute distress, non-toxic appearance. [] HENT: Normocephalic, atraumatic, bilateral external ears normal, oropharynx moist, no oral exudates, nose normal. [] Eyes: PERRLA, EOMI, conjunctiva normal, no discharge. [] Neck: Normal range of motion, no stridor. [] Cardiovascular:Heart rate regular rhythm Lungs & Thorax: Respirations even and unlabored, no retractions, no respiratory distress Skin: Warm, dry,; redness, warmth, and edema noted to right eyebrow with central small fluctuant area sister with abscess and surrounding cellulitis Extremities: No cyanosis, ROM intact, no edema. [] Neurologic: Alert and oriented X 3, no focal deficits noted. [] Psychologic: Affect normal, judgement normal, mood normal. [] Current Patient Data Vital Signs Vital Signs Date Time Temp Pulse Resp B/P (MAP) Pulse Ox O2 Delivery O2 Flow Rate FiO2 1/3/20 16:45 98.4 77 12 138/77 (97) 98 Room Air 98.4 EKG EKG [] Radiology/Procedures Radiology/Procedures [] Course & Med Decision Making Course & Med Decision Making Pertinent Labs and Imaging studies reviewed. (See chart for details) [] Dragon Disclaimer Dragon Disclaimer This electronic medical record was generated, in whole or in part, using a voice recognition dictation system. Departure Departure Impression: Primary Impression: Cellulitis of eyebrow Additional Impression: Abscess of eyebrow Disposition: HOME, SELF-CARE Condition: STABLE Referrals: NO PCP (PCP) Patient Instructions: Abscess, Care After, Cellulitis, [id number] Additional Instructions: Fill the prescription and take as directed. Apply warm, moist, heat to affected area every 1-2 hours tonight and tomorrow and then as needed. Tylenol or ibuprofen as needed for pain. Follow up with your primary care doctor next week for recheck, return to the ER if symptoms worsen. Scripts Cephalexin (CEPHALEXIN) 500 Mg Capsule 1 CAP PO QID for 7 Days, #28 CAP 0 Refills Prov: SAMMY DUMONT WOOD LATHER 04/15/19 Incision and Drainage Incision and Drainage : Site: right eyebrow Blade Size: 18-gauge needle I & D Procedure: betadine prep Progress 1% lidocaine was injected into the abscess site, an 18-gauge needle was introduced into the fluctuant area, a small amount of bloody pus was drained from the abscess site. Patient tolerated procedure well, minimal blood loss. Problem Qualifiers SAMMY DUMONT WO[employer] LATHER Apr 15, 2019 18:10
== END 2019-04-15 18:22 | disposition home or self-care (01) ==
LOC: ER 16:36
DX: L02.01 Cutaneous abscess of face (principal); L03.211 Cellulitis of face; L53.9 Erythematous condition, unspecified; F12.90 Cannabis use, unspecified, uncomplicated; F13.90 Sedative, hypnotic, or anxiolytic use, unspecified, uncomplicated
CPT/HCPCS: 10060; 99283